=== PATIENT | male | born 1945 | race American Indian/Alaskan Native ===

== ENCOUNTER 2017-08-25 13:15 | Inpatient (IN) | payer MEDICARE, MEDICAID ==
[2017-08-25] MEDS ORDERED: Dextrose 50% SYRINGE Inj (50 ml) ONE (13:21)
[2017-08-25 13:32] VITALS: BMI 24.4
[2017-08-25] MEDS ORDERED: Dextrose 50% SYRINGE Inj (50 ml) IVP STA ×2 (13:38→13:41)
--- NOTE | 2017-08-25 14:05 | CT ---
PROCEDURE: CT HEAD WITHOUT CONTRAST. HISTORY: code stroke COMPARISON: None available. TECHNIQUE: Axial computed tomography images were obtained through the head/brain without intravenous contrast. Radiation dose: Total exam DLP = 860.73 mGy-cm. This CT exam was performed using one or more of the following dose reduction techniques: Automated exposure control, adjustment of the mA and/or kV according to patient size, and/or use of iterative reconstruction technique. FINDINGS: HEMORRHAGE: No intracranial hemorrhage. BRAIN: There is asymmetric low attenuation in the right insular cortex and basal ganglia with dense right MCA. There are old infarctions in the right thalamus bilateral basal ganglia, left ben kaycee and right frontal operculum. There are mild chronic microangiopathic changes. There is no mass, mass effect or abnormal extra-axial fluid collection. There are coarse atherosclerotic calcifications in the cavernous carotid arteries. VENTRICLES: There is moderate age-related global parenchymal volume loss and proportionate enlargement of the ventricles and cortical sulci. CALVARIUM: The skull base and calvarium are normal. PARANASAL SINUSES: There is a small retention cyst/ polyp in the left maxillary sinus. The remaining included paranasal sinuses are predominantly clear. MASTOID AIR CELLS: The mastoid air cells are clear. OTHER FINDINGS: None. IMPRESSION: 1. Findings are concerning for right MCA territory infarction involving the right insula and basal ganglia with concern of thrombus in the right middle cerebral artery. Please note an MRI of the brain without intravenous contrast would be a more sensitive modality for evaluation of hyperacute/acute ischemic infarction. 2. Old lacunar infarctions in bilateral basal ganglia and right thalamus. 3. Mild chronic microangiopathic changes and moderate age-related global parenchymal volume loss. Important findings were discussed with Dr. Dave Jimenez on 08/25/2017 at 1:50 p.m.
[2017-08-25 14:11] LABS: BASO # 0.1 K/uL (0.0-0.2); BASO % 0.6 % (0.0-2.0); EOS % 0.5 % (0.0-4.0); HEMOGLOBIN 12.9 g/dL (12.0-18.0); LYMPH # 1.3 K/uL (1.0-4.3); LYMPH % 14.8 % (20.0-40.0); MEAN CELL VOLUME 75.8 fl (80.0-94.0); MEAN CORPUSCULAR HEMOGLOBIN 24.7 pg (27.0-31.0); MEAN CORPUSCULAR HGB CONC 32.6 g/dL (33.0-37.0); MEAN PLATELET VOLUME 8.6 fl (7.2-11.7); MONO # 0.7 K/uL (0.0-0.8); MONO % 7.8 % (0.0-10.0); NEUT # 6.8 K/uL (1.8-7.0); NEUT % 76.3 % (50.0-75.0); NRBC % 0.1 % (0.0-0.0); RBC 5.22 Mil/uL (4.40-5.90); RED CELL DISTRIBUTION WIDTH 14.6 % (11.5-14.5); WHITE BLOOD COUNT 8.9 K/uL (4.8-10.8)
--- NOTE | 2017-08-25 14:39 | RAD ---
PROCEDURE: CHEST RADIOGRAPH, 1 VIEW HISTORY: code stroke COMPARISON: None available. FINDINGS: A tracheostomy tube remains in place. LUNGS: The lungs are clear. PLEURA: No pneumothorax or pleural fluid seen. CARDIOVASCULAR: Normal. OSSEOUS STRUCTURES: No significant abnormalities. VISUALIZED UPPER ABDOMEN: Normal. OTHER FINDINGS: None. IMPRESSION: No active pulmonary disease.
--- NOTE | 2017-08-25 14:42 | CP.PCM.CON ---
History of Present Illness - History of Present Illness History of Present Illness: Mr. Howard is a 71-year-old man with a past medical history of HTN, DM, CAD, digital amputations, history of laryngeal cancer (s/p trach), who was apparently at his baseline when he developed the sudden onset of right facial droop, right arm and leg weakness (at slightly after 11:30 AM). He was brought in to the ED about two hours after symptom onset and a STAT CT scan of the head did not show any hemorrhage, but there were previous lacunar infarcts and a possible right MCA hyperdensity. According to EMS, his initial serum glucose was normal; however, when he arrived to the ED, it was 20. He was given D50 and it was elevated to 60. Another dose of D50, brought it to 200. He was still within the 3 hour time window of IV tPA and at this point had no absolute contraindications. When I examined him, the patient followed simple commands, but had some difficulty with comprehension. His speech was difficult to assess due to the tracheostomy, but he did exhibit some deficits in comprehension. His NIHSS was a 7. Review of Systems - Review of Systems All systems: reviewed and no additional remarkable complaints except Past Patient History - Past Medical History & Family History Past Medical History?: Yes - Past Social History Smoking Status: Former Smoker - CARDIAC Hx Hypertension: Yes Hx Peripheral Edema: Yes - PULMONARY Hx Respiratory Disorders: Yes Hx Chronic Obstructive Pulmonary Disease (COPD): Yes Other/Comment: tracheostomy - HEENT Hx HEENT Problems: Yes Hx Cataracts: Yes - ENDOCRINE/METABOLIC Hx Endocrine Disorders: Yes Hx Diabetes Mellitus Type 2: Yes - HEMATOLOGICAL/ONCOLOGICAL Hx Blood Disorders: Yes Hx Cancer: Yes (larynx) - GENITOURINARY/GYNECOLOGICAL Hx Genitourinary Disorders: Yes Hx Prostate Problems: Yes - PSYCHIATRIC Hx Psychophysiologic Disorder: Yes Hx Depression: Yes Hx Schizophrenia: Yes - SURGICAL HISTORY Hx Surgeries: Yes Hx Amputation: Yes (FINGER) Other/Comment: TRACHEOSTOMY 1963 - ANESTHESIA Hx Anesthesia: Yes Meds Allergies/Adverse Reactions: Allergies Allergy/AdvReac Type Severity Reaction Status Date / Time No Known Allergies Allergy Verified 11/03/16 10:43 Physical Exam - Neck Exam Additional comments: Tracheostomy - Respiratory Exam Respiratory Exam: Clear to Auscultation Bilateral, NORMAL BREATHING PATTERN - Cardiovascular Exam Cardiovascular Exam: REGULAR RHYTHM, +S1, +S2 - Neurological Exam Neurological exam: Altered, CN II-XII Intact Additional comments: Right facial droop. Right arm and leg sensation is decreased as compared with the left. Right arm strength is 3/5, RLE is antigravity, but falls before 5 seconds, left arm remains elevated for full 10 seconds, left leg remains elevated for 5 seconds. Plantar responses are mute. Speech could not be assessed, but he had difficulty in following some commands. NIHSS = 7 Results - Vital Signs Recent Vital Signs: Last Vital Signs Temp Pulse 90 08/25/17 13:26 Resp 16 08/25/17 13:26 BP Pulse Ox 97 08/25/17 13:26 - Labs Labs: Laboratory Results - last 24 hr 08/25/17 08/25/17 13:40 14:07 POC Glucose (mg/dL) 62 L 207 H Assessment & Plan (1) Acute ischemic stroke Assessment and Plan: Based on the exam findings, the infarct is likely lacunar left basal ganglia, but the CT head is more consistent with right MCA occlusion. The CT may be prone to artifact and clinically, the patient has right side deficits with an NIHSS of 7. He is within the 3 hour time window for IV tPA, his glucose was within normal range when IV tPA was recommended. He is not on any anticoagulation. Other labs may be bypassed at this time and tPA should be given without delay. Furthermore, I recommend the followin. STAT CTA of the head/neck to evaluate for large vessel occlusion. MRI of the brain without contrast. 2. ICU admission for 24 hour observation if no LVO 3. Maintain BP per post-tPA protocol 4. Avoid anticoagulants or antiplatelet agents for at least 24 hours or until further notice 5. Fluids with NS at 100 mL/hr 6. Statin to maintain LDL< 70 7. Maintain normal glucose levels 8. Avoid hyperthermia 9. Keep HOB at 30 degrees 10. SCD for DVT Px 11. Case management consult Thank you. Status: Acute Priority: High
[2017-08-25 14:45] LABS: INR 1.3 (0.9-1.2); PARTIAL THROMBOPLASTIN TIME 24.1 Seconds (25.6-37.1); PROTHROMBIN TIME 14.6 Seconds (9.8-13.1)
[2017-08-25 14:46] LABS: ALB/GLOB RATIO 0.7 (1.0-2.1); ALBUMIN 3.5 g/dL (3.5-5.0); ALT/SGPT 41 U/L (21-72); AST/SGOT 61 U/L (17-59); BLOOD UREA NITROGEN 69 mg/dl (9-20); GFR AFRICAN-AMERICAN 40; GFR NON-AFRICAN AMERICAN 33; LIPASE 242 U/L (23-300)
[2017-08-25] MEDS ORDERED: Iodixanol 320 MG/ML 100 ML BOTTLE IV ONE (15:10)
[2017-08-25] MEDS ORDERED: Sodium Chloride 0.9% 50 ML IV ONE (15:10)
--- NOTE | 2017-08-25 15:14 | ED PDOC ---
HPI:STROKE - Time Time: 03:11 - Historian Historian: Patient, intermediate, EMS - Chief Complaint Chief Complaint: Weakness (r arm), Facial droop (r face) - Onset Onset: Hours (2) - Timing Timing: Currently Symptomatic - Severity of pain Maximum severity:: Moderate - TPA Positive for Contraindication: No - Notes: Notes:: pt sent in by ems per [employer] pt last seen nml approx 1130 am, now right sided weakness and facial droop. pt is non verbal due to laryngectromy for larynx ca. per ems nml blood sugar. NIHSS Stroke Scale - Date/Time Evaluation Performed Date Performed: 08/25/17 Time Performed: 12:00 When Was NIHSS Performed: Baseline - How Severe is the Stroke Level of Consciousness: 1=Drowsy LOC to Questions: 2=Neither correct LOC to commands: 2=Neither correct Best Gaze: 1=Partial gaze palsy Visual: 0=No visual loss Facial: 2=Partial (lower face paralysis) Motor Arm - Left: 0=No drift Motor Arm - Right: 2=Falls before 10 sec Motor Leg - Left: 0=No drift Motor Leg - Right: 0=No drift Limb Ataxia: 0=Absent Sensory: 1=Mild to moderate loss Best Language: 3=Mute Dysarthia: 2=Severe, near unintelligible or worse Extinction & Inattention (Neglect): 0=Normal, no object Score: 16 Severity Of Stroke: 16-20 = Moderate/Severe Stroke rTPA Inclusion/Exclusion - Refusal of Treatment Patient Refused Treatment: No - Inclusion Criteria for Altepase Patient is 18 years or Older: Yes The Clinical Diagnosis of Ischemic Stroke That is Causing a Potentially Disabling Neurological Deficit: Yes Time of Onset is Well Established to be Less Than 270 Minute Before Treatment Would Begin: Yes Risk/Benefit Discussed With Patient/Family Member Present: Yes - Exclusion Criteria for Altepase Uncontrolled Hypertension at Time of Treatment (Systolic BP above 185 or Diastolic BP above 110 mmHg): No Active Internal Bleeding: No Known Bleeding Diathesis Including but Not Limited to: Platelets Below 100,000/ mm,PTT Above 40 sec After Heparin Use, Current Use of Oral Anitcoagulant With INR Greater Than 1.7 or PT Greater Than 15 secs: No Evidence of an Intracranial Hemorrhage: No Evidence of Major Acute Infarct With Signs Greater Than 1/3 MCA Territory: No Suspicion of Subarachnoid Hemorrhage on Pretreatment Evaluation Even if CT Head Negative For Hemorrhage: No - Warning to TPA With Conditions Following Conditions Weighed Against Anticipated Benefit: No Past Medical History Reviewed: Historical Data, Nursing Documentation, Vital Signs Vital Signs: Last Vital Signs Temp 97.6 F 08/25/17 15:05 Pulse 88 08/25/17 15:05 Resp 14 08/25/17 15:05 BP 157/98 H 08/25/17 15:05 Pulse Ox 100 08/25/17 15:05 - Medical History PMH: COPD, Depression, HTN, Peripheral Edema, Schizophrenia - Family History Family History: States: Unknown Family Hx - Living Arrangements Living Arrangements: With Family - Social History Current smoker - smoking cessation education provided: No - Home Medications Home Medications: Ambulatory Orders Medication Instructions Recorded Albuterol 0.083% [Albuterol 0.083% 3 ml IH Q8H PRN 11/03/16 Inhal Dana (2.5 mg/3 ml) UD] Ipratropium 0.02% [Atrovent] 2.5 ml IH Q8H PRN 11/03/16 Mirtazapine [Remeron] 7.5 mg PO HS 11/03/16 Multivitamin [Multivitamins] 1 cap PO DAILY 11/03/16 Tamsulosin [Flomax] 0.4 mg PO DAILY 11/03/16 Acetaminophen [Tylenol 325mg tab] 650 mg PO Q4 PRN 08/25/17 Acetaminophen [Tylenol 325mg tab] 650 mg PO Q4H PRN 08/25/17 Budesonide [Pulmicort Respules] 2 ml IH Q12H 08/25/17 Aspirin [Aspirin Chewable] 81 mg PO DAILY chew 08/31/17 - Allergies Allergies/Adverse Reactions: Allergies Allergy/AdvReac Type Severity Reaction Status Date / Time No Known Allergies Allergy Verified 11/03/16 10:43 Review of Systems Review Of Systems: ROS cannot be obtained secondary to pt's inabilty to answer questions. Neurological: Positive for: Weakness, Numbness Physical Exam - Reviewed Nursing Documentation Reviewed: Yes Vital Signs Reviewed: Yes - Physical Exam Appears: Positive for: In Acute Distress (mild) Head Exam: Positive for: ATRAUMATIC, NORMAL INSPECTION, NORMOCEPHALIC Skin: Positive for: Normal Color, Warm, Dry Eye Exam: Positive for: Normal appearance, PERRL, Other (mild right gave deviating to the left) Neck: Positive for: Normal, Painless ROM, Supple, Trachea Midline (s/p trach) Cardiovascular/Chest: Positive for: Regular Rate, Rhythm, Chest Non Tender. Negative for: Edema, Gallop Respiratory: Positive for: Normal Breath Sounds. Negative for: Decreased Breath Sounds, Accessory Muscle Use, Crackles, Rales, Rhonchi, Stridor, Wheezing Gastrointestinal/Abdominal: Positive for: Normal Exam, Bowel Sounds, Soft. Negative for: Tenderness Back: Positive for: Normal Inspection. Negative for: L CVA Tenderness Extremity: Positive for: Normal ROM. Negative for: Tenderness, Pedal Edema Neurologic/Psych: Positive for: Motor/Sensory Deficits (3/5 strength in rue), Mood/Affect (anxious), Cerebellar Tests (ftn intact), Aphasia, Facial Droop ( mod on left). Negative for: Alert (lethargic), Oriented - Laboratory Results Result Diagrams: 08/29/17 04:50 08/29/17 04:50 - ECG ECG: Positive for: Interpreted By Me ECG Rhythm: Positive for: Normal QRS, Normal ST Segment, Sinus Rhythm, ST/T Changes (twi in v5, v6 no st changes) O2 Sat by Pulse Oximetry: 100 Pulse Ox Interpretation: Normal - Radiology X-Ray: Interpreted by Me X-Ray Interpretation: No Acute Disease - Progress ED Course And Treament: seen and eval by Dr sin, pt a candidate for tpa. tpa delayed due to low bs on arrival requiring two doses of d50 with no change in sx. given in the ed, cta pending. pt tolerate well 3pm cta neg pt given tpa will admit to icu, pt sx are improving Re-evaluation Time: 15:22 Condition: Improved - Critical Care Total Time (In Min): 30 Documented Critical Care: Time excludes all time spent performint seperately billable procedures Disposition - Clinical Impression Clinical Impression: Acute ischemic stroke, CVA (cerebral vascular accident) - Patient ED Disposition Is Patient to be Admitted: Yes Counseled Patient/Family Regarding: Studies Performed, Diagnosis, Need For Followup - Disposition Disposition Time: 16:00 Condition: FAIR - Pt Status Changed To: Hospital Disposition Of: Inpatient - Admit Certification Admit to Inpatient:: After my assessment, the patient will require hospitalization for at least two midnights. This is because of the severity of symptoms shown, intensity of services needed, and/or the medical risk in this patient being treated as an outpatient. - POA Present On Arrival: None
[2017-08-25] MEDS ORDERED: Sodium Chloride 0.9% 1,000 ML IV ONE (15:41)
--- NOTE | 2017-08-25 16:17 | CT ---
PROCEDURE: CTA HEAD AND NECK WITH CONTRAST HISTORY: Right sided weakness COMPARISON: None available. TECHNIQUE: Initial noncontrast head CT was performed. Subsequently, CT angiogram of the head and neck were performed after the intravenous administration of 80 mL of Omnipaque 350. Contiguous 1.5mm thick images were obtained in the axial plane of the neck. 2-D coronal and sagittal MPR images were obtained. Imaging postprocessing was performed with 3-D images also obtained. A delayed contrast head CT was also obtained. This CT exam was performed using one or more of the following dose reduction techniques: Automated exposure control, adjustment of the mA and/or kV according to patient size, and/or use of iterative reconstruction technique. Contrast dose: 80 mL Visipaque 320 Radiation dose: Total exam DLP = 573.34 mGy-cm. FINDINGS: HEAD: Right: The intracranial internal carotid artery, and anterior and middle cerebral arteries are widely patent. Left: The intracranial internal carotid artery, and anterior and middle cerebral arteries are widely patent. The A1 segment is hypoplastic, an anatomic variant. Posterior circulation: The visualized intracranial vertebral arteries, basilar artery and posterior cerebral arteries are widely patent. The left vertebral artery is hypoplastic. Ther is no endoluminal filling defect to suggest thrombus. There is no intracranial saccular aneurysm. There is no abnormal enhancement on the postcontrast CT. NECK: There is a three vessel aortic arch. There is an intraluminal thrombus in the left proximal subclavian artery at its origin extending distal to the origin of the left vertebral artery. There is no stenosis at the origins of the innominate and left common carotid arteries at the level of the aortic arch. Right Carotid: There is aneurysmal dilatation of the internal carotid artery at its origin. Approximately 1.3 cm distal to the origin, there is a 7 mm short segment narrowing in the internal carotid artery with resultant approximately 60% stenosis. There is retropharyngeal course of the right internal carotid artery. The common carotid and external carotid arteries are widely patent. There is no hemodynamically significant stenosis in the internal carotid artery by NASCET criteria. Left Carotid: On the left, the common carotid and external carotid arteries are widely patent. There are advanced atherosclerotic calcifications and soft plaques in the proximal internal carotid artery with a 5 mm segment of critical narrowing resulting in greater than 80% stenosis. The right vertebral artery is widely patent. There is complete occlusion of the cervical segment of the left vertebral artery. There is flow in the intracranial left carotid artery likely from collateral circulation The visualized soft tissues of the neck are normal. The lung apices are clear. IMPRESSION: 1. Intraluminal thrombus in the left subclavian artery at its origin extending into the proximal subclavian artery distal to the origin of the left vertebral artery with complete occlusion of the cervical segment of the left vertebral artery. 2. Advanced calcified and noncalcified atherosclerotic plaques in the left proximal internal carotid artery with a short segment (5 mm) of severe narrowing resulting in greater than 80% stenosis. 3. 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 3. Patent and dominant right vertebral artery. 4. No evidence of occlusion, definite significant stenosis or narrowing in the intracranial circulation. The left intracranial vertebral artery is hypoplastic and likely filled by proved lateral circulation.
[2017-08-25] MEDS ORDERED: Albuterol-Ipratrop 3 mg / 0.5 (3 ml) UD INH PRN (18:15)
[2017-08-25 23:22] LABS: SQUAMOUS EPITHIAL < 1 /hpf (0-5); URINE BILIRUBIN NEGATIVE (NEGATIVE); URINE BLOOD MODERATE (NEGATIVE); URINE CLARITY SLIGHTY-CLOUDY (Clear); URINE COLOR AMBER (YELLOW); URINE GLUCOSE (UA) 150 mg/dL (Normal); URINE LEUKOCYTE ESTERASE NEG Leu/uL (Negative); URINE NITRATE NEGATIVE (NEGATIVE); URINE PROTEIN 30 mg/dL (NEGATIVE)
[2017-08-26] MEDS ORDERED: Sodium Chloride 0.9% 1,000 ML IV SCH ×2 (00:45→09:00)
[2017-08-26 01:33] LABS: BARBITURATES, UR NEGATIVE (NEGATIVE); BENZODIAZEPINES, UR NEGATIVE (NEGATIVE); OPIATES, UR NEGATIVE (NEGATIVE); PHENCYCLIDINE, UR NEGATIVE (NEGATIVE)
--- NOTE | 2017-08-26 04:48 | PN ---
DATE: 08/25/2017 SUBJECTIVE: Patient in ER, being admitted to ICU, Time spent 40 minutes. Mr. Howard is a 71-year-old male with history significant for diabetes mellitus type 2, hypertension, coronary artery disease status post digital amputation left arm, status post tracheostomy for laryngectomy secondary to laryngeal cancer. The patient was apparently at his baseline when he developed sudden onset of right facial droop and right leg weakness. The patient was brought to emergency room. A CT scan showed possible right MCA hyperdensity. Patient was seen by Neurology consult, recommended by IV TPA. TPA was completed, uneventful, admitted to ICU. REVIEW OF SYSTEMS: No fever, chills, cough, shortness of breath. No chest pain, palpitation. No abdominal pain. Right facial droop, weakness of the right arm and right leg. PAST MEDICAL HISTORY: As noted. PAST SURGICAL HISTORY: Laryngectomy. MEDICATIONS: At home, include Tylenol 650 q. 4 hours p.r.n., albuterol 2.5 mg 3 mL via nebulizer q. 8 hours, Pulmicort 0.5 mg q. 12 hours, Catapres 0.1 mg daily, Atrovent 0.5 mg q. 8 hours, lisinopril mg p.o. daily, magnesium hydroxide 30 mL daily, Remeron 7.5 mg p.o. at bedtime, multivitamin daily, Flomax 0.4 mg daily. ALLERGY: NONE DOCUMENTED. PHYSICAL EXAMINATION: GENERAL: An elderly male, alert, awake, but non-fluent of speech secondary to laryngectomy and tracheostomy. VITAL SIGNS: Temperature 97.6, heart rate 101, blood pressure 131/78, mean arterial pressure 95, respiratory rate 16, oxygen saturation 100%. HEAD, EYES, EARS, NOSE AND THROAT: Atraumatic and normocephalic. Pupils equal, round and reactive to light accommodation. Extraocular muscles intact. Conjunctivae pink. Sclerae white. NECK: Supple. Tracheostomy site clean, with no secretions. CHEST: Bilateral breath sounds. Expiration prolonged. HEART: Rhythm regular. S1 and S2 normal. ABDOMEN: Bowel sounds present. Soft. Liver and spleen not palpable. Bladder not distended. EXTREMITIES: Digital amputation left hand. NEUROLOGIC: Weakness of the right arm, right leg, right . LABORATORY DATA: Examination of head and neck CT angiogram, no evidence of occlusion, definite significant stenosis or narrowing in the intracranial circulation, the left intracranial vertebral artery is hypoplastic and likely filled by lateral circulation, patent and dominant right vertebral artery, aneurysmal dilatation of the right internal carotid artery at its mid origin, advanced calcified and noncalcified sclerotic plaques in the left proximal internal carotid artery, intraluminal thrombosis in the left subclavian artery at its origin extending into the proximal subclavian artery distal to the origin of the left vertebral artery with complete occlusion of the cervical segment of the left vertebral artery. CT head, right MCA territory infarction involving the right insula and basal ganglia with concern of thrombus in the right middle cerebral artery, old lacunar infarct in bilateral basilar ganglia and right thalamus, mild chronic microangiopathic changes and moderate age-related global parenchymal volume loss. WBC 8.9, hemoglobin 12.9, hematocrit 39.6, platelet count of 248. PT 14.6, INR 1.3, PTT 24.1. SMA-7, sodium 145, potassium 4, chloride 111, CO2 of 20, blood urea nitrogen 69, creatinine 2, random glucose 478, calcium 9, total bilirubin 0.8, AST 61, ALT 41, alkaline phosphatase 70, total protein 8.1, albumin 3.5, lipase 242. IMPRESSION: 1. Acute cerebrovascular accident, involving right middle cerebral artery hyperdensity. Patient presents with right facial droop and right hemiparesis. Appreciated Neurology evaluation, status post TPA, tolerated well. History of previous lacunar infarct. 2. Pulmonary: Status post of tracheostomy and laryngectomy for laryngeal cancer, chronic obstructive pulmonary disease, on bronchodilator at home. 3. Cardiac: Hypertension with hypertensive cardiovascular disease. 4. Endocrine: Diabetes mellitus type 2. Maintain blood sugar less than 180. 5. Infection: No acute issues noted. 6. Renal: Acute on chronic renal insufficiency. 7. GI: Keep n.p.o., continue swallow evaluation in the morning, Accu-Chek with regular insulin coverage. Will obtain OT/PT evaluation in the morning. Justin Palacios MD
[2017-08-26 06:20] LABS: LDL CHOLESTEROL 52 mg/dL (0-129)
[2017-08-26 06:21] LABS: BLOOD UREA NITROGEN 50 mg/dl (9-20); CALCIUM 9.2 mg/dL (8.4-10.2); GFR AFRICAN-AMERICAN > 60; GFR NON-AFRICAN AMERICAN 54; HDL CHOLESTEROL 28 MG/DL (30-70); MAGNESIUM 2.4 MG/DL (1.6-2.3)
[2017-08-26] MEDS: Insulin Regular 100 units/ml SC SCH ×5 (06:31→22:56)
[2017-08-26] MEDS ORDERED: Sodium Chloride 0.9% 500 ML IV ONE ×2 (08:41→12:35)
[2017-08-26] MEDS: Sodium Chloride 0.9% 1,000 ML IV SCH ×3 (11:00→22:56)
--- NOTE | 2017-08-26 11:42 | CP.CCUPN ---
CCU Subjective - Physician Review Subjective (Free Text): 08/26/17 11:35 Patient seen and examined with family preservation officer. Lying in bed, no apparent distress. Breathing comfortably. BP 80s systolic, HR 40s. When asked about dizziness the patient shook his head no to dizziness, chest pain, abdominal pain, nausea, or vomiting. Following commands this morning. Able to raise lower extremities against gravity , left upper extremity weakness, right upper extremity-unable to move. Patient is not speaking. Still has facial droop. No appetite, no thirst. Vital signs as per EMR: T98, HR 101, BP: 11/51, RR 17, trach collar-Fio2 50% O2 sat 96%. I/Os reviewed. Labs remarkable for Hypernatremia, Hyperchloremia, High BUN of 50, Low CO2 19 Imaging reviewed: CT head/ CTA, CXR, ECG. He is to have repeat CT of Head this afternoon as per code stroke protocol CCU Objective - Vital Signs / Intake & Output Intake and Output (Last 8hrs): Intake & Output 08/25/17 08/26/17 08/26/17 22:59 06:59 14:59 Intake Total 1450 Output Total 100 Balance 1350 Intake: IV 450 Intake, Piggyback 1000 Output: Urine 100 Urine, Voided 100 Other: # Voids Urine, Voided 1 - Physical Exam Head: Positive for: Atraumatic, Normocephalic Pupils: Positive for: PERRL Conjunctiva: Positive for: Normal Mouth: Positive for: Dry Neck: Positive for: Other (trach collar) Respiratory/Chest: Positive for: Good Air Exchange. Negative for: Respiratory Distress, Accessory Muscle Use, Wheezes, Rales, Tachypneic Cardiovascular: Positive for: Bradycardic, Other (left radial barely palpable, right radial palpable, bilateral dp/pt palable, femoral pulses strong.) Abdomen: Negative for: Tenderness, Distention Upper Extremity: Positive for: Normal Inspection, Other (unable to move right upper extremity, left upper extremity 2/5). Negative for: Edema, Normal ROM, Swelling, Erythema Lower Extremity: Positive for: Normal Inspection, Other (able to lift bilateral LE against gravity, strength 3/5). Negative for: Edema, Normal ROM, Swelling Neurological: Positive for: Other (gait deferred) Skin: Positive for: Warm, Dry Psychiatric: Positive for: Other (awake) - Medications Active Medications: Active Medications Generic Name Dose Route Start Last Admin Trade Name Freq PRN Reason Stop Dose Admin Albuterol/Ipratropium 3 ml 08/25/17 18:15 Duoneb 3 Mg/0.5 Mg (3 Ml) Ud INH RQ6 PRN Shortness of Breath Sodium Chloride 1,000 mls @ 100 mls/hr 08/26/17 00:00 08/26/17 00:00 Sodium Chloride 0.9% IV 08/29/17 23:59 100 mls/hr .Q10H SHANAE Administration Sodium Chloride 1,000 mls @ 999 mls/hr 08/26/17 09:00 Sodium Chloride 0.9% IV 08/27/17 08:53 .Q1H1M SHANAE Insulin Human Regular 1 units 08/25/17 22:00 08/26/17 06:31 Humulin R SC Not Given ACHS [facility] Protocol - Patient Studies Lab Studies: Lab Studies 08/26/17 08/26/17 08/26/17 Range/Units 11:30 08:54 06:09 WBC (4.8-10.8) K/uL RBC (4.40-5.90) Mil/uL Hgb (12.0-18.0) g/dL Hct (35.0-51.0) % MCV (80.0-94.0) fl MCH (27.0-31.0) pg MCHC (33.0-37.0) g/dL RDW (11.5-14.5) % Plt Count (130-400) K/uL MPV (7.2-11.7) fl Neut % (Auto) (50.0-75.0) % Lymph % (Auto) (20.0-40.0) % Glenn % (Auto) (0.0-10.0) % Eos % (Auto) (0.0-4.0) % Baso % (Auto) (0.0-2.0) % Neut # (1.8-7.0) K/uL Lymph # (1.0-4.3) K/uL Glenn # (0.0-0.8) K/uL Eos # (0.0-0.7) K/uL Baso # (0.0-0.2) K/uL PT (9.8-13.1) Seconds INR (0.9-1.2) APTT (25.6-37.1) Seconds Sodium (132-148) mmol/l Potassium (3.6-5.0) MMOL/L Chloride (98-107) mmol/L Carbon Dioxide (22-30) mmol/L Anion Gap (10-20) BUN (9-20) mg/dl Creatinine (0.8-1.5) mg/dl Est GFR ( Amer) Est GFR (Non-Af Amer) POC Glucose (mg/dL) 92 95 121 H (65-110) mg/dL Random Glucose (75-110) mg/dL Calcium (8.4-10.2) mg/dL Phosphorus (2.5-4.5) mg/dl Magnesium (1.6-2.3) MG/DL Total Bilirubin (0.2-1.3) mg/dl AST (17-59) U/L ALT (21-72) U/L Alkaline Phosphatase (38-126) U/L Troponin I (0.00-0.120) ng/mL Total Protein (6.3-8.2) G/DL Albumin (3.5-5.0) g/dL Globulin (2.2-3.9) gm/dL Albumin/Globulin Ratio (1.0-2.1) Triglycerides (0-149) mg/DL Cholesterol (0-199) mg/dL LDL Cholesterol Direct (0-129) mg/dL HDL Cholesterol (30-70) MG/DL Lipase (23-300) U/L TSH 3rd Generation (0.46-4.68) mIU/ML Urine Color (YELLOW) Urine Clarity (Clear) Urine pH (5.0-8.0) Ur Specific [place] (1.003-1.030) Urine Protein (NEGATIVE) mg/dL Urine Glucose (UA) (Normal) mg/dL Urine Ketones (NEGATIVE) mg/dL Urine Blood (NEGATIVE) Urine Nitrate (NEGATIVE) Urine Bilirubin (NEGATIVE) Urine Urobilinogen (0.2-1.0) mg/dL Ur Leukocyte Esterase (Negative) Jayant/uL Urine RBC (Auto) (0-3) /hpf Urine Microscopic WBC (0-5) /hpf Ur Squamous Epith Cells (0-5) /hpf Hyaline Casts (0-2) /hpf Urine Yeast (Budding) (NEGATIVE) /hpf Urine Opiates Screen (NEGATIVE) Urine Methadone Screen (NEGATIVE) Ur Barbiturates Screen (NEGATIVE) Ur Phencyclidine Scrn (NEGATIVE) Ur Amphetamines Screen (NEGATIVE) U Benzodiazepines Scrn (NEGATIVE) U Oth Cocaine Metabols (NEGATIVE) U Cannabinoids Screen (NEGATIVE) 08/26/17 08/26/17 08/25/17 Range/Units 05:10 01:14 23:55 WBC (4.8-10.8) K/uL RBC (4.40-5.90) Mil/uL Hgb (12.0-18.0) g/dL Hct (35.0-51.0) % MCV (80.0-94.0) fl MCH (27.0-31.0) pg MCHC (33.0-37.0) g/dL RDW (11.5-14.5) % Plt Count (130-400) K/uL MPV (7.2-11.7) fl Neut % (Auto) (50.0-75.0) % Lymph % (Auto) (20.0-40.0) % Glenn % (Auto) (0.0-10.0) % Eos % (Auto) (0.0-4.0) % Baso % (Auto) (0.0-2.0) % Neut # (1.8-7.0) K/uL Lymph # (1.0-4.3) K/uL Glenn # (0.0-0.8) K/uL Eos # (0.0-0.7) K/uL Baso # (0.0-0.2) K/uL PT (9.8-13.1) Seconds INR (0.9-1.2) APTT (25.6-37.1) Seconds Sodium 150 H (132-148) mmol/l Potassium 4.7 (3.6-5.0) MMOL/L Chloride 116 H (98-107) mmol/L Carbon Dioxide 19 L (22-30) mmol/L Anion Gap 20 (10-20) BUN 50 H (9-20) mg/dl Creatinine 1.3 (0.8-1.5) mg/dl Est GFR ( Amer) > 60 Est GFR (Non-Af Amer) 54 POC Glucose (mg/dL) 86 (65-110) mg/dL Random Glucose 118 H (75-110) mg/dL Calcium 9.2 (8.4-10.2) mg/dL Phosphorus 3.5 (2.5-4.5) mg/dl Magnesium 2.4 H (1.6-2.3) MG/DL Total Bilirubin (0.2-1.3) mg/dl AST (17-59) U/L ALT (21-72) U/L Alkaline Phosphatase (38-126) U/L Troponin I (0.00-0.120) ng/mL Total Protein (6.3-8.2) G/DL Albumin (3.5-5.0) g/dL Globulin (2.2-3.9) gm/dL Albumin/Globulin Ratio (1.0-2.1) Triglycerides 108 (0-149) mg/DL Cholesterol 136 (0-199) mg/dL LDL Cholesterol Direct 52 (0-129) mg/dL HDL Cholesterol 28 L (30-70) MG/DL Lipase (23-300) U/L TSH 3rd Generation 0.55 (0.46-4.68) mIU/ML Urine Color (YELLOW) Urine Clarity (Clear) Urine pH (5.0-8.0) Ur Specific [place] (1.003-1.030) Urine Protein (NEGATIVE) mg/dL Urine Glucose (UA) (Normal) mg/dL Urine Ketones (NEGATIVE) mg/dL Urine Blood (NEGATIVE) Urine Nitrate (NEGATIVE) Urine Bilirubin (NEGATIVE) Urine Urobilinogen (0.2-1.0) mg/dL Ur Leukocyte Esterase (Negative) Jayant/uL Urine RBC (Auto) (0-3) /hpf Urine Microscopic WBC (0-5) /hpf Ur Squamous Epith Cells (0-5) /hpf Hyaline Casts (0-2) /hpf Urine Yeast (Budding) (NEGATIVE) /hpf Urine Opiates Screen Negative (NEGATIVE) Urine Methadone Screen Negative (NEGATIVE) Ur Barbiturates Screen Negative (NEGATIVE) Ur Phencyclidine Scrn Negative (NEGATIVE) Ur Amphetamines Screen Negative (NEGATIVE) U Benzodiazepines Scrn Negative (NEGATIVE) U Oth Cocaine Metabols Negative (NEGATIVE) U Cannabinoids Screen Negative (NEGATIVE) 08/25/17 08/25/17 08/25/17 Range/Units 23:02 16:58 14:07 WBC (4.8-10.8) K/uL RBC (4.40-5.90) Mil/uL Hgb (12.0-18.0) g/dL Hct (35.0-51.0) % MCV (80.0-94.0) fl MCH (27.0-31.0) pg MCHC (33.0-37.0) g/dL RDW (11.5-14.5) % Plt Count (130-400) K/uL MPV (7.2-11.7) fl Neut % (Auto) (50.0-75.0) % Lymph % (Auto) (20.0-40.0) % Glenn % (Auto) (0.0-10.0) % Eos % (Auto) (0.0-4.0) % Baso % (Auto) (0.0-2.0) % Neut # (1.8-7.0) K/uL Lymph # (1.0-4.3) K/uL Glenn # (0.0-0.8) K/uL Eos # (0.0-0.7) K/uL Baso # (0.0-0.2) K/uL PT (9.8-13.1) Seconds INR (0.9-1.2) APTT (25.6-37.1) Seconds Sodium (132-148) mmol/l Potassium (3.6-5.0) MMOL/L Chloride (98-107) mmol/L Carbon Dioxide (22-30) mmol/L Anion Gap (10-20) BUN (9-20) mg/dl Creatinine (0.8-1.5) mg/dl Est GFR ( Amer) Est GFR (Non-Af Amer) POC Glucose (mg/dL) 88 207 H (65-110) mg/dL Random Glucose (75-110) mg/dL Calcium (8.4-10.2) mg/dL Phosphorus (2.5-4.5) mg/dl Magnesium (1.6-2.3) MG/DL Total Bilirubin (0.2-1.3) mg/dl AST (17-59) U/L ALT (21-72) U/L Alkaline Phosphatase (38-126) U/L Troponin I (0.00-0.120) ng/mL Total Protein (6.3-8.2) G/DL Albumin (3.5-5.0) g/dL Globulin (2.2-3.9) gm/dL Albumin/Globulin Ratio (1.0-2.1) Triglycerides (0-149) mg/DL Cholesterol (0-199) mg/dL LDL Cholesterol Direct (0-129) mg/dL HDL Cholesterol (30-70) MG/DL Lipase (23-300) U/L TSH 3rd Generation (0.46-4.68) mIU/ML Urine Color Magalys (YELLOW) Urine Clarity Slighty-cloudy (Clear) Urine pH 5.0 (5.0-8.0) Ur Specific [place] 1.039 H (1.003-1.030) Urine Protein 30 (NEGATIVE) mg/dL Urine Glucose (UA) 150 (Normal) mg/dL Urine Ketones Negative (NEGATIVE) mg/dL Urine Blood Moderate (NEGATIVE) Urine Nitrate Negative (NEGATIVE) Urine Bilirubin Negative (NEGATIVE) Urine Urobilinogen 2.0 (0.2-1.0) mg/dL Ur Leukocyte Esterase Neg (Negative) Jayant/uL Urine RBC (Auto) 9 H (0-3) /hpf Urine Microscopic WBC 3 (0-5) /hpf Ur Squamous Epith Cells < 1 (0-5) /hpf Hyaline Casts 6-10 H (0-2) /hpf Urine Yeast (Budding) Few H (NEGATIVE) /hpf Urine Opiates Screen (NEGATIVE) Urine Methadone Screen (NEGATIVE) Ur Barbiturates Screen (NEGATIVE) Ur Phencyclidine Scrn (NEGATIVE) Ur Amphetamines Screen (NEGATIVE) U Benzodiazepines Scrn (NEGATIVE) U Oth Cocaine Metabols (NEGATIVE) U Cannabinoids Screen (NEGATIVE) 08/25/17 08/25/17 08/25/17 Range/Units 14:00 14:00 14:00 WBC 8.9 (4.8-10.8) K/uL RBC 5.22 (4.40-5.90) Mil/uL Hgb 12.9 (12.0-18.0) g/dL Hct 39.6 (35.0-51.0) % MCV 75.8 L (80.0-94.0) fl MCH 24.7 L (27.0-31.0) pg MCHC 32.6 L (33.0-37.0) g/dL RDW 14.6 H (11.5-14.5) % Plt Count 248 (130-400) K/uL MPV 8.6 (7.2-11.7) fl Neut % (Auto) 76.3 H (50.0-75.0) % Lymph % (Auto) 14.8 L (20.0-40.0) % Glenn % (Auto) 7.8 (0.0-10.0) % Eos % (Auto) 0.5 (0.0-4.0) % Baso % (Auto) 0.6 (0.0-2.0) % Neut # 6.8 (1.8-7.0) K/uL Lymph # 1.3 (1.0-4.3) K/uL Glenn # 0.7 (0.0-0.8) K/uL Eos # 0.0 (0.0-0.7) K/uL Baso # 0.1 (0.0-0.2) K/uL PT 14.6 H (9.8-13.1) Seconds INR 1.3 H (0.9-1.2) APTT 24.1 L (25.6-37.1) Seconds Sodium 145 (132-148) mmol/l Potassium 4.0 (3.6-5.0) MMOL/L Chloride 111 H (98-107) mmol/L Carbon Dioxide 20 L (22-30) mmol/L Anion Gap 18 (10-20) BUN 69 H (9-20) mg/dl Creatinine 2.0 H (0.8-1.5) mg/dl Est GFR ( Amer) 40 Est GFR (Non-Af Amer) 33 POC Glucose (mg/dL) (65-110) mg/dL Random Glucose 478 H* (75-110) mg/dL Calcium 9.0 (8.4-10.2) mg/dL Phosphorus (2.5-4.5) mg/dl Magnesium (1.6-2.3) MG/DL Total Bilirubin 0.8 (0.2-1.3) mg/dl AST 61 H (17-59) U/L ALT 41 (21-72) U/L Alkaline Phosphatase 70 (38-126) U/L Troponin I < 0.0120 (0.00-0.120) ng/mL Total Protein 8.1 (6.3-8.2) G/DL Albumin 3.5 (3.5-5.0) g/dL Globulin 4.7 H (2.2-3.9) gm/dL Albumin/Globulin Ratio 0.7 L (1.0-2.1) Triglycerides (0-149) mg/DL Cholesterol (0-199) mg/dL LDL Cholesterol Direct (0-129) mg/dL HDL Cholesterol (30-70) MG/DL Lipase 242 (23-300) U/L TSH 3rd Generation (0.46-4.68) mIU/ML Urine Color (YELLOW) Urine Clarity (Clear) Urine pH (5.0-8.0) Ur Specific [place] (1.003-1.030) Urine Protein (NEGATIVE) mg/dL Urine Glucose (UA) (Normal) mg/dL Urine Ketones (NEGATIVE) mg/dL Urine Blood (NEGATIVE) Urine Nitrate (NEGATIVE) Urine Bilirubin (NEGATIVE) Urine Urobilinogen (0.2-1.0) mg/dL Ur Leukocyte Esterase (Negative) Jayant/uL Urine RBC (Auto) (0-3) /hpf Urine Microscopic WBC (0-5) /hpf Ur Squamous Epith Cells (0-5) /hpf Hyaline Casts (0-2) /hpf Urine Yeast (Budding) (NEGATIVE) /hpf Urine Opiates Screen (NEGATIVE) Urine Methadone Screen (NEGATIVE) Ur Barbiturates Screen (NEGATIVE) Ur Phencyclidine Scrn (NEGATIVE) Ur Amphetamines Screen (NEGATIVE) U Benzodiazepines Scrn (NEGATIVE) U Oth Cocaine Metabols (NEGATIVE) U Cannabinoids Screen (NEGATIVE) 08/25/17 Range/Units 13:40 WBC (4.8-10.8) K/uL RBC (4.40-5.90) Mil/uL Hgb (12.0-18.0) g/dL Hct (35.0-51.0) % MCV (80.0-94.0) fl MCH (27.0-31.0) pg MCHC (33.0-37.0) g/dL RDW (11.5-14.5) % Plt Count (130-400) K/uL MPV (7.2-11.7) fl Neut % (Auto) (50.0-75.0) % Lymph % (Auto) (20.0-40.0) % Glenn % (Auto) (0.0-10.0) % Eos % (Auto) (0.0-4.0) % Baso % (Auto) (0.0-2.0) % Neut # (1.8-7.0) K/uL Lymph # (1.0-4.3) K/uL Glenn # (0.0-0.8) K/uL Eos # (0.0-0.7) K/uL Baso # (0.0-0.2) K/uL PT (9.8-13.1) Seconds INR (0.9-1.2) APTT (25.6-37.1) Seconds Sodium (132-148) mmol/l Potassium (3.6-5.0) MMOL/L Chloride (98-107) mmol/L Carbon Dioxide (22-30) mmol/L Anion Gap (10-20) BUN (9-20) mg/dl Creatinine (0.8-1.5) mg/dl Est GFR ( Amer) Est GFR (Non-Af Amer) POC Glucose (mg/dL) 62 L (65-110) mg/dL Random Glucose (75-110) mg/dL Calcium (8.4-10.2) mg/dL Phosphorus (2.5-4.5) mg/dl Magnesium (1.6-2.3) MG/DL Total Bilirubin (0.2-1.3) mg/dl AST (17-59) U/L ALT (21-72) U/L Alkaline Phosphatase (38-126) U/L Troponin I (0.00-0.120) ng/mL Total Protein (6.3-8.2) G/DL Albumin (3.5-5.0) g/dL Globulin (2.2-3.9) gm/dL Albumin/Globulin Ratio (1.0-2.1) Triglycerides (0-149) mg/DL Cholesterol (0-199) mg/dL LDL Cholesterol Direct (0-129) mg/dL HDL Cholesterol (30-70) MG/DL Lipase (23-300) U/L TSH 3rd Generation (0.46-4.68) mIU/ML Urine Color (YELLOW) Urine Clarity (Clear) Urine pH (5.0-8.0) Ur Specific [place] (1.003-1.030) Urine Protein (NEGATIVE) mg/dL Urine Glucose (UA) (Normal) mg/dL Urine Ketones (NEGATIVE) mg/dL Urine Blood (NEGATIVE) Urine Nitrate (NEGATIVE) Urine Bilirubin (NEGATIVE) Urine Urobilinogen (0.2-1.0) mg/dL Ur Leukocyte Esterase (Negative) Jayant/uL Urine RBC (Auto) (0-3) /hpf Urine Microscopic WBC (0-5) /hpf Ur Squamous Epith Cells (0-5) /hpf Hyaline Casts (0-2) /hpf Urine Yeast (Budding) (NEGATIVE) /hpf Urine Opiates Screen (NEGATIVE) Urine Methadone Screen (NEGATIVE) Ur Barbiturates Screen (NEGATIVE) Ur Phencyclidine Scrn (NEGATIVE) Ur Amphetamines Screen (NEGATIVE) U Benzodiazepines Scrn (NEGATIVE) U Oth Cocaine Metabols (NEGATIVE) U Cannabinoids Screen (NEGATIVE) Laboratory Results - last 24 hr 08/25/17 08/25/17 08/25/17 13:40 14:00 14:00 WBC 8.9 RBC 5.22 Hgb 12.9 Hct 39.6 MCV 75.8 L MCH 24.7 L MCHC 32.6 L RDW 14.6 H Plt Count 248 MPV 8.6 Neut % (Auto) 76.3 H Lymph % (Auto) 14.8 L Glenn % (Auto) 7.8 Eos % (Auto) 0.5 Baso % (Auto) 0.6 Neut # 6.8 Lymph # 1.3 Glenn # 0.7 Eos # 0.0 Baso # 0.1 PT INR APTT Sodium 145 Potassium 4.0 Chloride 111 H Carbon Dioxide 20 L Anion Gap 18 BUN 69 H Creatinine 2.0 H Est GFR ( Amer) 40 Est GFR (Non-Af Amer) 33 POC Glucose (mg/dL) 62 L Random Glucose 478 H* Calcium 9.0 Phosphorus Magnesium Total Bilirubin 0.8 AST 61 H ALT 41 Alkaline Phosphatase 70 Troponin I < 0.0120 Total Protein 8.1 Albumin 3.5 Globulin 4.7 H Albumin/Globulin Ratio 0.7 L Triglycerides Cholesterol LDL Cholesterol Direct HDL Cholesterol Lipase 242 TSH 3rd Generation Urine Color Urine Clarity Urine pH Ur Specific [place] Urine Protein Urine Glucose (UA) Urine Ketones Urine Blood Urine Nitrate Urine Bilirubin Urine Urobilinogen Ur Leukocyte Esterase Urine RBC (Auto) Urine Microscopic WBC Ur Squamous Epith Cells Hyaline Casts Urine Yeast (Budding) Urine Opiates Screen Urine Methadone Screen Ur Barbiturates Screen Ur Phencyclidine Scrn Ur Amphetamines Screen U Benzodiazepines Scrn U Oth Cocaine Metabols U Cannabinoids Screen 08/25/17 08/25/17 08/25/17 14:00 14:07 16:58 WBC RBC Hgb Hct MCV MCH MCHC RDW Plt Count MPV Neut % (Auto) Lymph % (Auto) Glenn % (Auto) Eos % (Auto) Baso % (Auto) Neut # Lymph # Glenn # Eos # Baso # PT 14.6 H INR 1.3 H APTT 24.1 L Sodium Potassium Chloride Carbon Dioxide Anion Gap BUN Creatinine Est GFR ( Amer) Est GFR (Non-Af Amer) POC Glucose (mg/dL) 207 H 88 Random Glucose Calcium Phosphorus Magnesium Total Bilirubin AST ALT Alkaline Phosphatase Troponin I Total Protein Albumin Globulin Albumin/Globulin Ratio Triglycerides Cholesterol LDL Cholesterol Direct HDL Cholesterol Lipase TSH 3rd Generation Urine Color Urine Clarity Urine pH Ur Specific [place] Urine Protein Urine Glucose (UA) Urine Ketones Urine Blood Urine Nitrate Urine Bilirubin Urine Urobilinogen Ur Leukocyte Esterase Urine RBC (Auto) Urine Microscopic WBC Ur Squamous Epith Cells Hyaline Casts Urine Yeast (Budding) Urine Opiates Screen Urine Methadone Screen Ur Barbiturates Screen Ur Phencyclidine Scrn Ur Amphetamines Screen U Benzodiazepines Scrn U Oth Cocaine Metabols U Cannabinoids Screen 08/25/17 08/25/17 08/26/17 23:02 23:55 01:14 WBC RBC Hgb Hct MCV MCH MCHC RDW Plt Count MPV Neut % (Auto) Lymph % (Auto) Glenn % (Auto) Eos % (Auto) Baso % (Auto) Neut # Lymph # Glenn # Eos # Baso # PT INR APTT Sodium Potassium Chloride Carbon Dioxide Anion Gap BUN Creatinine Est GFR ( Amer) Est GFR (Non-Af Amer) POC Glucose (mg/dL) 86 Random Glucose Calcium Phosphorus Magnesium Total Bilirubin AST ALT Alkaline Phosphatase Troponin I Total Protein Albumin Globulin Albumin/Globulin Ratio Triglycerides Cholesterol LDL Cholesterol Direct HDL Cholesterol Lipase TSH 3rd Generation Urine Color Magalys Urine Clarity Slighty-cloudy Urine pH 5.0 Ur Specific [place] 1.039 H Urine Protein 30 Urine Glucose (UA) 150 Urine Ketones Negative Urine Blood Moderate Urine Nitrate Negative Urine Bilirubin Negative Urine Urobilinogen 2.0 Ur Leukocyte Esterase Neg Urine RBC (Auto) 9 H Urine Microscopic WBC 3 Ur Squamous Epith Cells < 1 Hyaline Casts 6-10 H Urine Yeast (Budding) Few H Urine Opiates Screen Negative Urine Methadone Screen Negative Ur Barbiturates Screen Negative Ur Phencyclidine Scrn Negative Ur Amphetamines Screen Negative U Benzodiazepines Scrn Negative U Oth Cocaine Metabols Negative U Cannabinoids Screen Negative 08/26/17 08/26/17 08/26/17 05:10 06:09 08:54 WBC RBC Hgb Hct MCV MCH MCHC RDW Plt Count MPV Neut % (Auto) Lymph % (Auto) Glenn % (Auto) Eos % (Auto) Baso % (Auto) Neut # Lymph # Glenn # Eos # Baso # PT INR APTT Sodium 150 H Potassium 4.7 Chloride 116 H Carbon Dioxide 19 L Anion Gap 20 BUN 50 H Creatinine 1.3 Est GFR ( Amer) > 60 Est GFR (Non-Af Amer) 54 POC Glucose (mg/dL) 121 H 95 Random Glucose 118 H Calcium 9.2 Phosphorus 3.5 Magnesium 2.4 H Total Bilirubin AST ALT Alkaline Phosphatase Troponin I Total Protein Albumin Globulin Albumin/Globulin Ratio Triglycerides 108 Cholesterol 136 LDL Cholesterol Direct 52 HDL Cholesterol 28 L Lipase TSH 3rd Generation 0.55 Urine Color Urine Clarity Urine pH Ur Specific [place] Urine Protein Urine Glucose (UA) Urine Ketones Urine Blood Urine Nitrate Urine Bilirubin Urine Urobilinogen Ur Leukocyte Esterase Urine RBC (Auto) Urine Microscopic WBC Ur Squamous Epith Cells Hyaline Casts Urine Yeast (Budding) Urine Opiates Screen Urine Methadone Screen Ur Barbiturates Screen Ur Phencyclidine Scrn Ur Amphetamines Screen U Benzodiazepines Scrn U Oth Cocaine Metabols U Cannabinoids Screen 08/26/17 11:30 WBC RBC Hgb Hct MCV MCH MCHC RDW Plt Count MPV Neut % (Auto) Lymph % (Auto) Glenn % (Auto) Eos % (Auto) Baso % (Auto) Neut # Lymph # Glenn # Eos # Baso # PT INR APTT Sodium Potassium Chloride Carbon Dioxide Anion Gap BUN Creatinine Est GFR ( Amer) Est GFR (Non-Af Amer) POC Glucose (mg/dL) 92 Random Glucose Calcium Phosphorus Magnesium Total Bilirubin AST ALT Alkaline Phosphatase Troponin I Total Protein Albumin Globulin Albumin/Globulin Ratio Triglycerides Cholesterol LDL Cholesterol Direct HDL Cholesterol Lipase TSH 3rd Generation Urine Color Urine Clarity Urine pH Ur Specific [place] Urine Protein Urine Glucose (UA) Urine Ketones Urine Blood Urine Nitrate Urine Bilirubin Urine Urobilinogen Ur Leukocyte Esterase Urine RBC (Auto) Urine Microscopic WBC Ur Squamous Epith Cells Hyaline Casts Urine Yeast (Budding) Urine Opiates Screen Urine Methadone Screen Ur Barbiturates Screen Ur Phencyclidine Scrn Ur Amphetamines Screen U Benzodiazepines Scrn U Oth Cocaine Metabols U Cannabinoids Screen Fingerstick Blood Sugar Results: 121 Assessment/Plan - Assessment and Plan (Free Text) Assessment: A/P: 71 year old male admitted for acute ischemic CVA, treated with TPA for about 30 minutes, subsequently d/c due to adverse effects- bleeding from tracheostomy site. No bleeding evident this morning. 1. 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 CAD now with Hypotension/Arrythmia 3. 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 Prophylaxis Neuro: Ischemic Stroke: Awake, unable to assess mental status. Responding with shaking of his head yes/no. Repeat CT Head this afternoon. Cardiovascular: Hypotension, Bradycardia, CAD. Hypotensive: given fluid challenge with response in BP. ECG on admission did not reveal bradycardia. Echo ordered. Will obtain cardiology consult-Dr. Luis. 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 Breathing at slow rate about 10, no apparent respiratory distress. Denies dyspnea. Oxygen saturation within acceptable limits. GI: Needs swallow eval due to stroke. NPO for now. Renal/: Renal function elevated on admission, possibly 2 to dehydration. BUN remains elevated, Cr is now WNL. Will place [place] Catheter for monitoring of I/ Os. On NS at 100cc/hr. Endocrine: NIDDM, accuchecks. Currently NPO. Hematology: Unremarkable. ID: No evidence of infection, no Abx. Prophylaxis: SCDs, Case d/w [employer]. Woody PGY-2
--- NOTE | 2017-08-26 14:03 | CT ---
PROCEDURE: CT HEAD WITHOUT CONTRAST. HISTORY: CVA COMPARISON: August 25, 2017. CT head August 25, 2017. CTA neck and brain TECHNIQUE: Axial computed tomography images were obtained through the head/brain without intravenous contrast. Coronal and sagittal reconstructed images. Radiation dose: Total exam DLP = 860.73 mGy-cm. This CT exam was performed using one or more of the following dose reduction techniques: Automated exposure control, adjustment of the mA and/or kV according to patient size, and/or use of iterative reconstruction technique. FINDINGS: HEMORRHAGE: No evidence of intracranial hemorrhage. BRAIN: Cobb infarct affecting a branch vessel of the left middle cerebral artery and watershed area left parieto-occipital region. These represent new findings compared to the prior study. Incidental finding(s): Periventricular small vessel disease, multiple bilateral lacune or infarcts. No atrophy or chronic microvascular ischemic changes. VENTRICLES: Unremarkable. No hydrocephalus. CALVARIUM: Unremarkable. PARANASAL SINUSES: Unremarkable as visualized. No significant inflammatory changes. MASTOID AIR CELLS: Unremarkable as visualized. No inflammatory changes. OTHER FINDINGS: None. IMPRESSION: Areas of acute nonhemorrhagic cortical infarction corresponding to branch vessels of the left MCA as well as a smaller bland infarct watershed distribution left posterior parietal occipital region.
--- NOTE | 2017-08-26 17:05 | CP.PCM.PN ---
Subjective - Date & Time of Evaluation Date of Evaluation: 08/26/17 Time of Evaluation: 15:00 - Subjective Subjective: Mr. Howard was seen and examined today at bedside in the ICU. Overnight, the patient developed intermittent hypotension, tachycardia and required fluid boluses. He did not finish the full IV tPA dose since he had issues with bleeding from the trach site. The repeat CT head showed new areas of left MCA infarct without hemorrhagic conversion. He developed worsening aphasia and right arm weakness with an NIHSS of 12. Objective - Vital Signs/Intake and Output Vital Signs (last 24 hours): Temp Pulse Resp BP Pulse Ox 97.8 F 65 22 91/67 L 100 08/26/17 16:00 08/26/17 16:00 08/26/17 16:00 08/26/17 16:00 08/26/17 16:00 Intake and Output: 08/26/17 08/26/17 06:59 18:59 Intake Total 1450 2700 Output Total 100 1000 Balance 1350 1700 - Medications Medications: Current Medications Albuterol/Ipratropium (Duoneb 3 Mg/0.5 Mg (3 Ml) Ud) 3 ml INH RQ6 PRN PRN Reason: Shortness of Breath Sodium Chloride (Sodium Chloride 0.9%) 1,000 mls @ 100 mls/hr IV .Q10H SHANAE Stop: 08/29/17 23:59 Last Admin: 08/26/17 00:00 Dose: 100 mls/hr Insulin Human Regular (Humulin R) 1 units SC ACHS SHANAE PRN Reason: Protocol Last Admin: 08/26/17 14:37 Dose: Not Given - Labs Labs: 08/25/17 14:00 08/26/17 05:10 PT 14.6 Seconds (9.8-13.1) H 08/25/17 14:00 INR 1.3 (0.9-1.2) H 08/25/17 14:00 APTT 24.1 Seconds (25.6-37.1) L 08/25/17 14:00 - Neurological Exam Neurological Exam: Altered, Awake Neuro motor strength exam: Left Upper Extremity: 4, Right Upper Extremity: 0, Left Lower Extremity: 3, Right Lower Extremity: 3 Additional comments: Right side visual deficits noted. Assessment and Plan (1) Acute ischemic stroke Assessment & Plan: Currently, the patient is hypotensive and requiring fluids and may need pressors to increase BP to normal range. Since the patient did not complete the full dose of tPA, and it has been nearly 24 hours, I recommend starting aspirin and Plavix since there is no hemorrhagic conversion and the patient remains at high risk for subsequent stroke. Follow up on the echocardiogram results is needed. 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 If the patient continues to worsen, we may need to discuss less aggressive measures. Status: Acute
--- NOTE | 2017-08-26 17:18 | PCM.PROC ---
Procedures Attestation:: I certify that I have explained the specified Operation(s) or Procedure(s), risks, benefits and reasonable alternatives to the Patient and/or other person responsible. The opportunity was given to ask questions and all questions answered - Central Line Placement Right Subclavian Triple Lumen Catheter Aseptic technique was employed throughout the procedure: Full sterile barriers ( mask, hair cover, sterile gown, sterile gloves), Full body sterile drape, Chloraprep Antiseptic: 30 second prep for IJ or SC sites CVP Time Out Performed: Yes Central Line Prep: Chlorhexidine-Alcohol Combination Ultrasound Used for Placement: No Central Line Lumen Inserted: triple Central Line Length: 16 cm Post Procedure: Sutured in Place, Good Blood Return, All Ports Aspirated, Flushed, Capped, Sterile Dressing Applied Secured by: Suture Post procedure dressing: Clear vapor permeable, Chlorhexidine disc (Biopatch) Post Procedure X-Ray: Yes Patient Tolerated Procedure: Well Additional Comments: Done under emergent conditions in ICU for persistent hypotension despite approx 2 liter fluid challenge today in the presence of worsening and evolving Left CVA ; for vasopressor infusion. Post procedure CXR shows satisfactory placement of tip of TLC in distal SVC, no PTX seen.
--- NOTE | 2017-08-26 17:41 | CP.CCUPN ---
CCU Subjective - Physician Review Subjective (Free Text): Awake and alert, nonverbal due to longstanding trach for laryngeal CA, but comprehends and moves head in yes/no fashion appropriately. No new focal defects , but moving R side less today compared to previous descriptions. No further bleeding nor clots from trach site as described yesterday during latter half of TPA infusion. NIHSS now . Other vitals and I/O's reviewed. Hypotensive and bradycardic, unclear if related to CVA versus other cardiogenic etiology. ROS: No other pertinent negs or positives on 10+ system review. PMSFH: All other Nursing and physician documentation reviewed to date; no new pertinent info noted relevant to current medical problems. IMPRESSION / MAJOR PROBLEMS NOW: 1. Acute CVA with R hemiplegia 2. Hypotension / Hypovolemia 3. 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 H/o Laryngeal CA PLAN: 1. IV Vasopressors (Norepinephrine, for now) to raise SBP to maintain cerebral blood flow. 2. ASA, Plavix, statin; will need NGT; unless directed otherwise by Neurology. 3. Cardiology eval. 4. IVF hydration with NSS. Watch fluid balance. 5. SCDs, and PPi IV. CCU Objective - Vital Signs / Intake & Output Vital Signs (Last 4 hours): Vital Signs Temp Pulse Resp BP Pulse Ox 08/26/17 16:00 97.8 F 65 22 91/67 L 100 08/26/17 14:00 96 H 17 95/52 L 100 Intake and Output (Last 8hrs): Intake & Output 08/26/17 08/26/17 08/26/17 06:59 14:59 22:59 Intake Total 1450 2500 200 Output Total 100 1000 Balance 1350 1500 200 Intake: IV 450 2500 200 Intake, Piggyback 1000 Output: Urine 100 1000 Urine, Voided 100 1000 Other: # Voids Urine, Voided 1 - Physical Exam Head: Positive for: Atraumatic, Normocephalic Pupils: Positive for: PERRL Extroacular Muscles: Positive for: Gaze Palsy (Rightward) Conjunctiva: Positive for: Normal Mouth: Positive for: Dry Neck: Positive for: Other (trach collar) Respiratory/Chest: Positive for: Good Air Exchange. Negative for: Respiratory Distress, Accessory Muscle Use, Wheezes, Rales, Tachypneic Cardiovascular: Positive for: Bradycardic, Other (left radial barely palpable, right radial palpable, bilateral dp/pt palable, femoral pulses strong.) Abdomen: Negative for: Tenderness, Distention Upper Extremity: Positive for: Normal Inspection, Other (unable to move right upper extremity, left upper extremity 2/5). Negative for: Edema, Normal ROM, Swelling, Erythema Lower Extremity: Positive for: Normal Inspection, Edema (trace), Other (able to lift bilateral LE against gravity, strength 3/5). Negative for: Normal ROM, Swelling Neurological: Positive for: Other (gait deferred, R hemiplegia) Skin: Positive for: Warm, Dry Psychiatric: Positive for: Alert, Oriented x 3, Other (awake) - Medications Active Medications: Active Medications Generic Name Dose Route Start Last Admin Trade Name Freq PRN Reason Stop Dose Admin Albuterol/Ipratropium 3 ml 08/25/17 18:15 Duoneb 3 Mg/0.5 Mg (3 Ml) Ud INH RQ6 PRN Shortness of Breath Sodium Chloride 1,000 mls @ 100 mls/hr 08/26/17 00:00 08/26/17 00:00 Sodium Chloride 0.9% IV 08/29/17 23:59 100 mls/hr .Q10H SHANAE Administration Norepinephrine Bitartrate 4 mg 254 mls @ 9.52 mls/hr 08/26/17 17:45 / Dextrose IV .Q24H [facility] Protocol 2.5 MCG/MIN Insulin Human Regular 1 units 08/25/17 22:00 08/26/17 14:37 Humulin R SC Not Given ACHS [facility] Protocol - Patient Studies Lab Studies: Lab Studies 08/26/17 08/26/17 08/26/17 Range/Units 11:30 08:54 06:09 Sodium (132-148) mmol/l Potassium (3.6-5.0) MMOL/L Chloride (98-107) mmol/L Carbon Dioxide (22-30) mmol/L Anion Gap (10-20) BUN (9-20) mg/dl Creatinine (0.8-1.5) mg/dl Est GFR ( Amer) Est GFR (Non-Af Amer) POC Glucose (mg/dL) 92 95 121 H (65-110) mg/dL Random Glucose (75-110) mg/dL Calcium (8.4-10.2) mg/dL Phosphorus (2.5-4.5) mg/dl Magnesium (1.6-2.3) MG/DL Triglycerides (0-149) mg/DL Cholesterol (0-199) mg/dL LDL Cholesterol Direct (0-129) mg/dL HDL Cholesterol (30-70) MG/DL TSH 3rd Generation (0.46-4.68) mIU/ML Urine Color (YELLOW) Urine Clarity (Clear) Urine pH (5.0-8.0) Ur Specific [place] (1.003-1.030) Urine Protein (NEGATIVE) mg/dL Urine Glucose (UA) (Normal) mg/dL Urine Ketones (NEGATIVE) mg/dL Urine Blood (NEGATIVE) Urine Nitrate (NEGATIVE) Urine Bilirubin (NEGATIVE) Urine Urobilinogen (0.2-1.0) mg/dL Ur Leukocyte Esterase (Negative) Jayant/uL Urine RBC (Auto) (0-3) /hpf Urine Microscopic WBC (0-5) /hpf Ur Squamous Epith Cells (0-5) /hpf Hyaline Casts (0-2) /hpf Urine Yeast (Budding) (NEGATIVE) /hpf Urine Opiates Screen (NEGATIVE) Urine Methadone Screen (NEGATIVE) Ur Barbiturates Screen (NEGATIVE) Ur Phencyclidine Scrn (NEGATIVE) Ur Amphetamines Screen (NEGATIVE) U Benzodiazepines Scrn (NEGATIVE) U Oth Cocaine Metabols (NEGATIVE) U Cannabinoids Screen (NEGATIVE) 08/26/17 08/26/17 08/25/17 Range/Units 05:10 01:14 23:55 Sodium 150 H (132-148) mmol/l Potassium 4.7 (3.6-5.0) MMOL/L Chloride 116 H (98-107) mmol/L Carbon Dioxide 19 L (22-30) mmol/L Anion Gap 20 (10-20) BUN 50 H (9-20) mg/dl Creatinine 1.3 (0.8-1.5) mg/dl Est GFR ( Amer) > 60 Est GFR (Non-Af Amer) 54 POC Glucose (mg/dL) 86 (65-110) mg/dL Random Glucose 118 H (75-110) mg/dL Calcium 9.2 (8.4-10.2) mg/dL Phosphorus 3.5 (2.5-4.5) mg/dl Magnesium 2.4 H (1.6-2.3) MG/DL Triglycerides 108 (0-149) mg/DL Cholesterol 136 (0-199) mg/dL LDL Cholesterol Direct 52 (0-129) mg/dL HDL Cholesterol 28 L (30-70) MG/DL TSH 3rd Generation 0.55 (0.46-4.68) mIU/ML Urine Color (YELLOW) Urine Clarity (Clear) Urine pH (5.0-8.0) Ur Specific [place] (1.003-1.030) Urine Protein (NEGATIVE) mg/dL Urine Glucose (UA) (Normal) mg/dL Urine Ketones (NEGATIVE) mg/dL Urine Blood (NEGATIVE) Urine Nitrate (NEGATIVE) Urine Bilirubin (NEGATIVE) Urine Urobilinogen (0.2-1.0) mg/dL Ur Leukocyte Esterase (Negative) Jayant/uL Urine RBC (Auto) (0-3) /hpf Urine Microscopic WBC (0-5) /hpf Ur Squamous Epith Cells (0-5) /hpf Hyaline Casts (0-2) /hpf Urine Yeast (Budding) (NEGATIVE) /hpf Urine Opiates Screen Negative (NEGATIVE) Urine Methadone Screen Negative (NEGATIVE) Ur Barbiturates Screen Negative (NEGATIVE) Ur Phencyclidine Scrn Negative (NEGATIVE) Ur Amphetamines Screen Negative (NEGATIVE) U Benzodiazepines Scrn Negative (NEGATIVE) U Oth Cocaine Metabols Negative (NEGATIVE) U Cannabinoids Screen Negative (NEGATIVE) 08/25/17 Range/Units 23:02 Sodium (132-148) mmol/l Potassium (3.6-5.0) MMOL/L Chloride (98-107) mmol/L Carbon Dioxide (22-30) mmol/L Anion Gap (10-20) BUN (9-20) mg/dl Creatinine (0.8-1.5) mg/dl Est GFR ( Amer) Est GFR (Non-Af Amer) POC Glucose (mg/dL) (65-110) mg/dL Random Glucose (75-110) mg/dL Calcium (8.4-10.2) mg/dL Phosphorus (2.5-4.5) mg/dl Magnesium (1.6-2.3) MG/DL Triglycerides (0-149) mg/DL Cholesterol (0-199) mg/dL LDL Cholesterol Direct (0-129) mg/dL HDL Cholesterol (30-70) MG/DL TSH 3rd Generation (0.46-4.68) mIU/ML Urine Color [place] (YELLOW) Urine Clarity Slighty-cloudy (Clear) Urine pH 5.0 (5.0-8.0) Ur Specific [place] 1.039 H (1.003-1.030) Urine Protein 30 (NEGATIVE) mg/dL Urine Glucose (UA) 150 (Normal) mg/dL Urine Ketones Negative (NEGATIVE) mg/dL Urine Blood Moderate (NEGATIVE) Urine Nitrate Negative (NEGATIVE) Urine Bilirubin Negative (NEGATIVE) Urine Urobilinogen 2.0 (0.2-1.0) mg/dL Ur Leukocyte Esterase Neg (Negative) Jayant/uL Urine RBC (Auto) 9 H (0-3) /hpf Urine Microscopic WBC 3 (0-5) /hpf Ur Squamous Epith Cells < 1 (0-5) /hpf Hyaline Casts 6-10 H (0-2) /hpf Urine Yeast (Budding) Few H (NEGATIVE) /hpf Urine Opiates Screen (NEGATIVE) Urine Methadone Screen (NEGATIVE) Ur Barbiturates Screen (NEGATIVE) Ur Phencyclidine Scrn (NEGATIVE) Ur Amphetamines Screen (NEGATIVE) U Benzodiazepines Scrn (NEGATIVE) U Oth Cocaine Metabols (NEGATIVE) U Cannabinoids Screen (NEGATIVE) Laboratory Results - last 24 hr 08/25/17 08/25/17 08/26/17 23:02 23:55 01:14 Sodium Potassium Chloride Carbon Dioxide Anion Gap BUN Creatinine Est GFR ( Amer) Est GFR (Non-Af Amer) POC Glucose (mg/dL) 86 Random Glucose Calcium Phosphorus Magnesium Triglycerides Cholesterol LDL Cholesterol Direct HDL Cholesterol TSH 3rd Generation Urine Color Magalys Urine Clarity Slighty-cloudy Urine pH 5.0 Ur Specific [place] 1.039 H Urine Protein 30 Urine Glucose (UA) 150 Urine Ketones Negative Urine Blood Moderate Urine Nitrate Negative Urine Bilirubin Negative Urine Urobilinogen 2.0 Ur Leukocyte Esterase Neg Urine RBC (Auto) 9 H Urine Microscopic WBC 3 Ur Squamous Epith Cells < 1 Hyaline Casts 6-10 H Urine Yeast (Budding) Few H Urine Opiates Screen Negative Urine Methadone Screen Negative Ur Barbiturates Screen Negative Ur Phencyclidine Scrn Negative Ur Amphetamines Screen Negative U Benzodiazepines Scrn Negative U Oth Cocaine Metabols Negative U Cannabinoids Screen Negative 01/31/18 01/31/18 01/31/18 05:10 06:09 08:54 Sodium 150 H Potassium 4.7 Chloride 116 H Carbon Dioxide 19 L Anion Gap 20 BUN 50 H Creatinine 1.3 Est GFR ( Amer) > 60 Est GFR (Non-Af Amer) 54 POC Glucose (mg/dL) 121 H 95 Random Glucose 118 H Calcium 9.2 Phosphorus 3.5 Magnesium 2.4 H Triglycerides 108 Cholesterol 136 LDL Cholesterol Direct 52 HDL Cholesterol 28 L TSH 3rd Generation 0.55 Urine Color Urine Clarity Urine pH Ur Specific [place] Urine Protein Urine Glucose (UA) Urine Ketones Urine Blood Urine Nitrate Urine Bilirubin Urine Urobilinogen Ur Leukocyte Esterase Urine RBC (Auto) Urine Microscopic WBC Ur Squamous Epith Cells Hyaline Casts Urine Yeast (Budding) Urine Opiates Screen Urine Methadone Screen Ur Barbiturates Screen Ur Phencyclidine Scrn Ur Amphetamines Screen U Benzodiazepines Scrn U Oth Cocaine Metabols U Cannabinoids Screen 08/26/17 11:30 Sodium Potassium Chloride Carbon Dioxide Anion Gap BUN Creatinine Est GFR ( Amer) Est GFR (Non-Af Amer) POC Glucose (mg/dL) 92 Random Glucose Calcium Phosphorus Magnesium Triglycerides Cholesterol LDL Cholesterol Direct HDL Cholesterol TSH 3rd Generation Urine Color Urine Clarity Urine pH Ur Specific [place] Urine Protein Urine Glucose (UA) Urine Ketones Urine Blood Urine Nitrate Urine Bilirubin Urine Urobilinogen Ur Leukocyte Esterase Urine RBC (Auto) Urine Microscopic WBC Ur Squamous Epith Cells Hyaline Casts Urine Yeast (Budding) Urine Opiates Screen Urine Methadone Screen Ur Barbiturates Screen Ur Phencyclidine Scrn Ur Amphetamines Screen U Benzodiazepines Scrn U Oth Cocaine Metabols U Cannabinoids Screen Fingerstick Blood Sugar Results: 92 Review of Systems - Review of Systems All systems: reviewed and no additional remarkable complaints except (as above) Critical Care Progress Note - Nutrition Nutrition: Nutrition Category Date Time Status NPO Diet [DIET] Diets 08/26/17 Dinner Active
--- NOTE | 2017-08-26 17:45 | CP.PCM.HP ---
History of Present Illness - History of Present Illness History of Present Illness: 71 yr old M [facility] resident brought in by ambulance for right arm weakness and right facial droop noticed by [facility] staff within the AM shift. PMHx includes laryngectomy s/p larynx cancer, HTN, COPD, peripheral edema , schizophrenia and depression. At baseline patient is non-verbal d/t laryngectomy. Patient nods in response to questions: denies chest pain, SOB, nausea or abdominal pain. Per [facility] records: patient was on a regular diet. PMD: Dr. Chapman at [facility] PMHx: laryngectomy s/p larynx cancer, HTN, COPD, peripheral edema, schizophrenia and depression SurgHx: laryngectomy FMHx: noncontributory SocHx: denies smoking, Etoh or drugs Medications: see medication reconciliation Allergies: NKDA Present on Admission - Present on Admission Any Indicators Present on Admission: No History of DVT/PE: No History of Uncontrolled Diabetes: No Urinary Catheter: No Decubitus Ulcer Present: No History Surgical Site Infection Following: None Review of Systems - Review of Systems Systems not reviewed;Unavailable: Language Barrier (limited due to patient being non-verbal at baseline s/p laryngectomy) Review of Systems: Patient nods no to: denies dizziness, chest pain, abdominal pain, nausea, chills , body aches, headache. Past Patient History - Past Medical History & Family History Past Medical History?: Yes - Past Social History Smoking Status: Never Smoked - CARDIAC Hx Cardiac Disorders: Yes - PULMONARY Hx Chronic Obstructive Pulmonary Disease (COPD): Yes Other/Comment: Larynx CA - HEENT Hx HEENT Problems: Yes - ENDOCRINE/METABOLIC Hx Endocrine Disorders: Yes - HEMATOLOGICAL/ONCOLOGICAL Hx Blood Disorders: Yes - MUSCULOSKELETAL/RHEUMATOLOGICAL Hx Falls: No - GENITOURINARY/GYNECOLOGICAL Hx Genitourinary Disorders: Yes - PSYCHIATRIC Hx Depression: Yes Hx Schizophrenia: Yes Hx Substance Use: No - SURGICAL HISTORY Hx Surgeries: Yes Hx Amputation: Yes (partially left fingers (pointer,middle, & ring)) Other/Comment: Laryngectomy;TRACHEOSTOMY 1963 - ANESTHESIA Hx Anesthesia: Yes Hx Anesthesia Reactions: No Hx Malignant Hyperthermia: No Meds Allergies/Adverse Reactions: Allergies Allergy/AdvReac Type Severity Reaction Status Date / Time No Known Allergies Allergy Verified 11/03/16 10:43 Physical Exam - Constitutional Appears: No Acute Distress - Head Exam Head Exam: ATRAUMATIC, NORMOCEPHALIC - Eye Exam Eye Exam: EOMI, PERRL - ENT Exam ENT Exam: Mucous Membranes Moist Additional comments: tracheostomy tube in place, no discharge, no bleeding - Neck Exam Neck exam: Negative for: Lymphadenopathy - Respiratory Exam Respiratory Exam: Clear to Auscultation Bilateral, NORMAL BREATHING PATTERN - Cardiovascular Exam Cardiovascular Exam: REGULAR RHYTHM, +S1, +S2 - GI/Abdominal Exam GI & Abdominal Exam: Normal Bowel Sounds, Soft. 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 - Neurological Exam Neurological exam: Alert - Psychiatric Exam Psychiatric exam: Flat Affect - Skin Skin Exam: Dry, Warm Results - Vital Signs Recent Vital Signs: Last Vital Signs Temp 97.8 F 08/26/17 16:00 Pulse 65 08/26/17 16:00 Resp 22 08/26/17 16:00 BP 91/67 L 08/26/17 16:00 Pulse Ox 100 08/26/17 16:00 - Labs Result Diagrams: 08/25/17 14:00 08/26/17 05:10 Labs: Laboratory Results - last 24 hr 08/25/17 08/25/17 08/26/17 23:02 23:55 01:14 Sodium Potassium Chloride Carbon Dioxide Anion Gap BUN Creatinine Est GFR ( Amer) Est GFR (Non-Af Amer) POC Glucose (mg/dL) 86 Random Glucose Calcium Phosphorus Magnesium Triglycerides Cholesterol LDL Cholesterol Direct HDL Cholesterol TSH 3rd Generation Urine Color Magalys Urine Clarity Slighty-cloudy Urine pH 5.0 Ur Specific [place] 1.039 H Urine Protein 30 Urine Glucose (UA) 150 Urine Ketones Negative Urine Blood Moderate Urine Nitrate Negative Urine Bilirubin Negative Urine Urobilinogen 2.0 Ur Leukocyte Esterase Neg Urine RBC (Auto) 9 H Urine Microscopic WBC 3 Ur Squamous Epith Cells < 1 Hyaline Casts 6-10 H Urine Yeast (Budding) Few H Urine Opiates Screen Negative Urine Methadone Screen Negative Ur Barbiturates Screen Negative Ur Phencyclidine Scrn Negative Ur Amphetamines Screen Negative U Benzodiazepines Scrn Negative U Oth Cocaine Metabols Negative U Cannabinoids Screen Negative 0108/26/17 08/26/17 05:10 06:09 08:54 Sodium 150 H Potassium 4.7 Chloride 116 H Carbon Dioxide 19 L Anion Gap 20 BUN 50 H Creatinine 1.3 Est GFR ( Amer) > 60 Est GFR (Non-Af Amer) 54 POC Glucose (mg/dL) 121 H 95 Random Glucose 118 H Calcium 9.2 Phosphorus 3.5 Magnesium 2.4 H Triglycerides 108 Cholesterol 136 LDL Cholesterol Direct 52 HDL Cholesterol 28 L TSH 3rd Generation 0.55 Urine Color Urine Clarity Urine pH Ur Specific [place] Urine Protein Urine Glucose (UA) Urine Ketones Urine Blood Urine Nitrate Urine Bilirubin Urine Urobilinogen Ur Leukocyte Esterase Urine RBC (Auto) Urine Microscopic WBC Ur Squamous Epith Cells Hyaline Casts Urine Yeast (Budding) Urine Opiates Screen Urine Methadone Screen Ur Barbiturates Screen Ur Phencyclidine Scrn Ur Amphetamines Screen U Benzodiazepines Scrn U Oth Cocaine Metabols U Cannabinoids Screen 08/26/17 11:30 Sodium Potassium Chloride Carbon Dioxide Anion Gap BUN Creatinine Est GFR ( Amer) Est GFR (Non-Af Amer) POC Glucose (mg/dL) 92 Random Glucose Calcium Phosphorus Magnesium Triglycerides Cholesterol LDL Cholesterol Direct HDL Cholesterol TSH 3rd Generation Urine Color Urine Clarity Urine pH Ur Specific [place] Urine Protein Urine Glucose (UA) Urine Ketones Urine Blood Urine Nitrate Urine Bilirubin Urine Urobilinogen Ur Leukocyte Esterase Urine RBC (Auto) Urine Microscopic WBC Ur Squamous Epith Cells Hyaline Casts Urine Yeast (Budding) Urine Opiates Screen Urine Methadone Screen Ur Barbiturates Screen Ur Phencyclidine Scrn Ur Amphetamines Screen U Benzodiazepines Scrn U Oth Cocaine Metabols U Cannabinoids Screen Assessment & Plan - Assessment and Plan (Free Text) Assessment: 71 yr old M admitted for acute CVA, s/p TPA administered in emergency department. NIH score 16, patient is noverbal at baseline s/p laryngectomy for larynx cancer. -continue management in ICU -NPO diey -supplemental O2 via tracheostomy -speech and swallow evaluation -Cardiology on consult: will recommendations -Neurology on consult: will follow recommendations -DVT prophylaxis with SCD's -PT/OT - Date & Time Date: 08/26/17 Time: 10:00
--- NOTE | 2017-08-26 17:56 | RAD ---
HISTORY: post Subclavian Vein TLC COMPARISON: August 25, 2017. FINDINGS: LUNGS: No active pulmonary disease. PLEURA: No significant pleural effusion identified, no pneumothorax apparent. CARDIOVASCULAR: Venous access catheter in satisfactory position. No pneumothorax following placement of right TLC. The tip is in the SVC. OSSEOUS STRUCTURES: No significant abnormalities. VISUALIZED UPPER ABDOMEN: Normal. OTHER FINDINGS: Stable, satisfactory position of tracheostomy device. IMPRESSION: No adverse findings/pneumothorax or other pathologic process following right subclavian line placement.
--- NOTE | 2017-08-26 23:07 | CON ---
DATE: CARDIOLOGY CONSULTATION HISTORY OF PRESENT ILLNESS: The patient is a 71-year-old male who is brought in from Intermediate because of right-sided weakness and right facial drooping. The patient has tracheostomy. The patient did receive TPA; however, it was not completed because of bleeding from the tracheostomy site. Head and neck CT angio revealed intraluminal thrombus in the left subclavian artery at its origin extending to the proximal subclavian artery distal to the origin of the left vertebral artery with complete occlusion of the cervical segment of the left vertebral artery. Patent and dominant right vertebral artery. The second head CT scan revealed findings concerning right mid cerebral artery territory infarct involving the right insula and basal ganglia with concern of thrombus in the right middle cerebral artery. Old lacunar infarct in the bilateral basal ganglia and right thalamus. Mild chronic microangiopathic changes. The patient was noted today to have sinus bradycardia at times. SOCIAL HISTORY: Patient is a prison resident. MEDICATIONS: Albuterol inhaler q. 6 hours, normal saline at 100 mL an hour. REVIEW OF SYSTEMS: No reported seizures and no reported hypotension, no reported ventricular tachycardia. PHYSICAL EXAMINATION: GENERAL: The patient is an elderly male who is aphasic, but follows verbal commands. VITAL SIGNS: Blood pressure 117/51, heart rate 101, temperature 98, respirations 17. HEENT: Normocephalic. NECK: Tracheostomy opening is noted. CHEST: Bilateral rhonchi. HEART: S1, S2 regular. EXTREMITIES: No edema. NEUROLOGIC: Revealed right hemiplegia with right facial drooping. LABORATORY DATA: SMA-7: Sodium 150, potassium 4.7, chloride 116, CO2 of 19, glucose 118, BUN 50, creatinine 1.3. Troponin is 0.012. Hemoglobin, hematocrit, white count and platelet count are within normal limit. EKG done in Emergency revealed normal sinus rhythm, 87, left atrial enlargement, possible old inferior infarct. ASSESSMENT: 1. Acute cerebrovascular accident with thrombotic occlusion of the left vertebral artery. 2. 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 3. Periods of sinus bradycardia. 4. Dehydration with hypernatremia and prerenal azotemia. 5. Uncontrolled diabetes mellitus. RECOMMENDATIONS: Patient is being maintained in ICU. Continue albuterol inhaler and normal saline infusion, obtain a bedside echocardiogram, consider therapeutic anticoagulation as there is no neurological contraindication. TSH level was performed already and is within normal limit. Jose D Luis MD
[2017-08-27 05:13] LABS: MEAN CELL VOLUME 76.1 fl (80.0-94.0); MEAN CORPUSCULAR HEMOGLOBIN 24.2 pg (27.0-31.0); MEAN CORPUSCULAR HGB CONC 31.8 g/dL (33.0-37.0); RBC 5.76 Mil/uL (4.40-5.90); RED CELL DISTRIBUTION WIDTH 14.7 % (11.5-14.5)
[2017-08-27 05:21] LABS: ALB/GLOB RATIO 0.7 (1.0-2.1); ALBUMIN 3.3 g/dL (3.5-5.0); ALT/SGPT 46 U/L (21-72); AST/SGOT 71 U/L (17-59); BLOOD UREA NITROGEN 17 mg/dl (9-20); CALCIUM 8.5 mg/dL (8.4-10.2); GFR AFRICAN-AMERICAN > 60; GFR NON-AFRICAN AMERICAN > 60
[2017-08-27] MEDS ORDERED: Aspirin 325 mg EC Tablets PO SCH (06:00)
[2017-08-27] MEDS: Insulin Regular 100 units/ml SC SCH ×4 (07:10→22:00)
--- NOTE | 2017-08-27 07:53 | CARD ---
APPROVED REPORT EXAM: Two-dimensional and M-mode echocardiogram with Doppler and color Doppler. Other Information Quality : AverageRhythm : NSR INDICATION CVA/TIA 2D DIMENSIONS IVSd1.49 (0.7-1.1cm)LVDd4.13 (3.9-5.9cm) LVOT Diameter2.63 (1.8-2.4cm)PWd1.32 (0.7-1.1cm) IVSs2.05 (0.8-1.2cm)LVDs2.65 (2.5-4.0cm) FS (%) 35.8 %PWs1.41 (0.8-1.2cm) M-Mode DIMENSIONS Left Atrium (MM)3.28 (2.5-4.0cm)IVSd1.19 (0.7-1.1cm) Aortic Root4.05 (2.2-3.7cm)LVDd4.40 (4.0-5.6cm) Aortic Cusp Exc.1.96 (1.5-2.0cm)PWd1.47 (0.7-1.1cm) IVSs1.75 cmFS (%) 19 % LVDs3.56 (2.0-3.8cm)PWs1.82 cm Mitral Valve E/A ratio0.0 TDI E/Lateral E'0.0E/Medial E'0.0 Pulmonary Valve PV Peak Ajphafzj27.4cm/s LEFT VENTRICLE The left ventricle is normal size. There is mild concentric left ventricular hypertrophy. Left ventricle systolic function is mildly to moderately impaired. The Ejection Fraction is 35-40%. Septum had a "rocking" motion possibly due to IVCD. Apical 1/3 of septum, apx and apical 1/2 if inferior wall were hypokinetic Other segments moved normally Transmitral Doppler flow pattern is Grade I-abnormal relaxation pattern. RIGHT VENTRICLE The right ventricle is normal size. The right ventricle is borderline hypertrophied. The right ventricular systolic function is normal. ATRIA The left atrium size is normal. The right atrium size is normal. AORTIC VALVE The aortic valve is mildly sclerotic. No aortic regurgitation is present. There is no aortic valvular stenosis. MITRAL VALVE The mitral valve is normal in structure. There is no evidence of mitral valve prolapse. There is no mitral valve stenosis. Mitral regurgitation is mild to moderate. TRICUSPID VALVE The tricuspid valve is normal in structure. There is no tricuspid valve regurgitation noted. PULMONIC VALVE The pulmonary valve is normal in structure. There is mild pulmonic valvular regurgitation. GREAT VESSELS The aortic root is normal in size. The IVC is normal in size and collapses >50% with inspiration. PERICARDIAL EFFUSION The pericardium appears normal. <Conclusion> The left ventricle is normal size. There is mild concentric left ventricular hypertrophy. Septum had a "rocking" motion possibly due to IVCD. Apical 1/3 of septum, apx and apical 1/2 if inferior wall were hypokinetic Other segments moved normally Left ventricle systolic function is mildly to moderately impaired. The Ejection Fraction is 35-40%. Transmitral Doppler flow pattern is Grade I-abnormal relaxation pattern. Mitral regurgitation is mild to moderate.
--- NOTE | 2017-08-27 08:28 | CP.PCM.PN ---
Subjective - Date & Time of Evaluation Date of Evaluation: 08/27/17 Time of Evaluation: 08:16 - Subjective Subjective: Mr. Howard was seen and examined at the bedside in ICU. He is non verbal, communicated using non-verbal cues such as nodding his head. He remains with right facial palsy and right side paralysis. He is able to minimally move his right leg in response to tactile stimuli. He is able to follow simple commands such as opening his mouth, raising his left upper and lower extremities. He has a trach collar connected to an oxygen. His blood pressure remains within the 90's receiving vasopressor. He remains on 1:1 sitter for patient safety. There was no untoward events overnight. Objective - Vital Signs/Intake and Output Vital Signs (last 24 hours): Temp Pulse Resp BP Pulse Ox 99.4 F 95 H 24 104/77 100 08/27/17 04:00 08/27/17 07:00 08/27/17 07:00 08/27/17 07:00 08/27/17 07:00 Intake and Output: 08/27/17 08/27/17 06:59 18:59 Intake Total 1527 Output Total 1700 Balance -173 - Medications Medications: Current Medications Albuterol/Ipratropium (Duoneb 3 Mg/0.5 Mg (3 Ml) Ud) 3 ml INH RQ6 PRN PRN Reason: Shortness of Breath Aspirin (Ecotrin) 325 mg PO DAILY SHANAE Aspirin (Aspirin Supp) 300 mg FL ONCE ONE Stop: 08/27/17 09:01 Clopidogrel Bisulfate (Plavix) 75 mg PO DAILY SHANAE Sodium Chloride (Sodium Chloride 0.9%) 1,000 mls @ 100 mls/hr IV .Q10H SHANAE Stop: 08/29/17 23:59 Last Admin: 08/26/17 22:56 Dose: 100 mls/hr Norepinephrine Bitartrate 4 mg (/ Dextrose) 254 mls @ 9.52 mls/hr IV .Q24H SHANAE ; 2.5 MCG/MIN PRN Reason: Protocol Last Admin: 08/27/17 03:05 Dose: 7.5 mcg/min, 28.57 mls/hr Norepinephrine Bitartrate 4 mg (/ Dextrose) 254 mls @ 9.52 mls/hr IV .Q24H SHANAE ; 2.5 MCG/MIN PRN Reason: Protocol Last Admin: 08/27/17 06:51 Dose: Not Given Insulin Human Regular (Humulin R) 1 units SC ACHS SHANAE PRN Reason: Protocol Last Admin: 08/27/17 07:10 Dose: Not Given - Labs Labs: 08/27/17 04:20 08/27/17 04:20 PT 14.6 Seconds (9.8-13.1) H 08/25/17 14:00 INR 1.3 (0.9-1.2) H 08/25/17 14:00 APTT 24.1 Seconds (25.6-37.1) L 08/25/17 14:00 - Constitutional Appears: No Acute Distress - Head Exam Head Exam: NORMAL INSPECTION - Neurological Exam Neurological Exam: Alert, Awake Neuro motor strength exam: Left Upper Extremity: 4, Right Upper Extremity: 0, Left Lower Extremity: 4, Right Lower Extremity: 0 Additional comments: He is able to answer questions using non verbal cues and follow simple commands. Sensation is asymmetrical. less sensitive in his right side. Assessment and Plan (1) Acute ischemic stroke Assessment & Plan: Case discussed with Dr. Arauz, continue all current medical, physical, occupational, and speech therapies. Recommend normotensive. If the patient unable to pass swallowing evaluation to insert NGT for feeding and medication purposes. Status: Acute
--- NOTE | 2017-08-27 09:50 | CT ---
APPROVED REPORT EKG Measurement Heart [id number] <Conclusion> Normal sinus rhythm with sinus arrhythmia Possible Left atrial enlargement Possible Inferior infarct, age undetermined Abnormal ECG
--- NOTE | 2017-08-27 10:09 | CP.CCUPN ---
<NiravsantosharanCarolyn - Last Filed: 08/27/17 16:08> CCU Subjective - Physician Review Subjective (Free Text): 08/27/17 10:13 Patient was seen and examined at bedside with business analyst Patient eating pureed without distress. No respiratory distress noted at the time of evaluation. Deion shook her head to No when asked for chest pain, SOB , pain or other symptoms. No evidence of bleeding this morning. VS on monitor: BP: 110s systolic, HR: 100s Following commands. Patient was able to slightly raise his LUE and LLE, but no moving RUE and RLL. Still has a right facial drop. Patient is not verbal. VS as per EMR: T: 99.6 F, pulse rate: 102, BP: 114/76, oxygen sat 98 % on 50 FiO2 Noted a large discrepancy between right and left arm BP, Right arm showing higher BP levels: 150s/110s, and left arm showing lower levels: 80s/50s Labs today reviewed He had head CT repeated yesterday as per Code stroke protocol CCU Objective - Vital Signs / Intake & Output Vital Signs (Last 4 hours): Vital Signs Temp Pulse Resp BP Pulse Ox 08/27/17 08:00 99.6 F 102 H 21 114/76 100 08/27/17 07:00 95 H 24 104/77 100 Intake and Output (Last 8hrs): Intake & Output 08/26/17 08/27/17 08/27/17 22:59 06:59 14:59 Intake Total 726 1013 Output Total 1700 Balance 726 -687 Intake: IV 612 842 Intake, Piggyback 114 171 Output: Urine 1700 Urethral (Marroquin) 1700 - Physical Exam Head: Positive for: Atraumatic, Normocephalic Pupils: Positive for: PERRL Extroacular Muscles: Positive for: Gaze Palsy (Rightward) Conjunctiva: Positive for: Normal Mouth: Positive for: Dry Neck: Positive for: Other (trach collar) Respiratory/Chest: Positive for: Good Air Exchange. Negative for: Respiratory Distress, Accessory Muscle Use, Wheezes, Rales, Tachypneic Cardiovascular: Positive for: Bradycardic, Other (left radial barely palpable, right radial palpable, bilateral dp/pt palable, femoral pulses strong.) Abdomen: Negative for: Tenderness, Distention Upper Extremity: Positive for: Normal Inspection, Other (unable to move right upper extremity, left upper extremity 2/5). Negative for: Edema, Normal ROM, Swelling, Erythema Lower Extremity: Positive for: Normal Inspection, Edema (trace), Other (able to lift bilateral LE against gravity, strength 3/5). Negative for: Normal ROM, Swelling Neurological: Positive for: Other (gait deferred, R hemiplegia) Skin: Positive for: Warm, Dry Psychiatric: Positive for: Alert, Oriented x 3, Other (awake) - Medications Active Medications: Active Medications Generic Name Dose Route Start Last Admin Trade Name Freq PRN Reason Stop Dose Admin Albuterol/Ipratropium 3 ml 08/25/17 18:15 Duoneb 3 Mg/0.5 Mg (3 Ml) Ud INH RQ6 PRN Shortness of Breath Aspirin 325 mg 08/27/17 06:00 Ecotrin PO DAILY SHANAE Aspirin 81 mg 08/27/17 09:00 Aspirin Chewable PO DAILY SHANAE Clopidogrel Bisulfate 75 mg 08/28/17 09:00 Plavix PO DAILY SHANAE Sodium Chloride 1,000 mls @ 100 mls/hr 08/26/17 00:00 08/26/17 22:56 Sodium Chloride 0.9% IV 08/29/17 23:59 100 mls/hr .Q10H SHANAE Administration Norepinephrine Bitartrate 4 mg 254 mls @ 9.52 mls/hr 08/26/17 17:45 08/27/17 03:05 / Dextrose IV 7.5 mcg/min .Q24H SHANAE 28.57 mls/hr Protocol Administration 2.5 MCG/MIN Norepinephrine Bitartrate 4 mg 254 mls @ 9.52 mls/hr 08/27/17 03:30 08/27/17 06:51 / Dextrose IV Not Given .Q24H [facility] Protocol 2.5 MCG/MIN Insulin Human Regular 1 units 08/25/17 22:00 08/27/17 07:10 Humulin R SC Not Given ACHS [facility] Protocol - Patient Studies Lab Studies: Lab Studies 08/27/17 08/27/17 08/27/17 Range/Units 06:11 04:20 04:20 WBC 11.0 H (4.8-10.8) K/uL RBC 5.76 (4.40-5.90) Mil/uL Hgb 14.0 (12.0-18.0) g/dL Hct 43.9 (35.0-51.0) % MCV 76.1 L (80.0-94.0) fl MCH 24.2 L (27.0-31.0) pg MCHC 31.8 L (33.0-37.0) g/dL RDW 14.7 H (11.5-14.5) % Plt Count 256 (130-400) K/uL Sodium 143 (132-148) mmol/l Potassium 3.7 (3.6-5.0) MMOL/L Chloride 106 (98-107) mmol/L Carbon Dioxide 25 (22-30) mmol/L Anion Gap 16 (10-20) BUN 17 (9-20) mg/dl Creatinine 0.8 (0.8-1.5) mg/dl Est GFR ( Amer) > 60 Est GFR (Non-Af Amer) > 60 POC Glucose (mg/dL) 101 (65-110) mg/dL Random Glucose 134 H (75-110) mg/dL Calcium 8.5 (8.4-10.2) mg/dL Total Bilirubin 1.5 H (0.2-1.3) mg/dl AST 71 H (17-59) U/L ALT 46 (21-72) U/L Alkaline Phosphatase 83 (38-126) U/L Total Protein 8.3 H (6.3-8.2) G/DL Albumin 3.3 L (3.5-5.0) g/dL Globulin 5.0 H (2.2-3.9) gm/dL Albumin/Globulin Ratio 0.7 L (1.0-2.1) 08/26/17 08/26/17 08/26/17 Range/Units 21:50 17:18 11:30 WBC (4.8-10.8) K/uL RBC (4.40-5.90) Mil/uL Hgb (12.0-18.0) g/dL Hct (35.0-51.0) % MCV (80.0-94.0) fl MCH (27.0-31.0) pg MCHC (33.0-37.0) g/dL RDW (11.5-14.5) % Plt Count (130-400) K/uL Sodium (132-148) mmol/l Potassium (3.6-5.0) MMOL/L Chloride (98-107) mmol/L Carbon Dioxide (22-30) mmol/L Anion Gap (10-20) BUN (9-20) mg/dl Creatinine (0.8-1.5) mg/dl Est GFR ( Amer) Est GFR (Non-Af Amer) POC Glucose (mg/dL) 121 H 89 92 (65-110) mg/dL Random Glucose (75-110) mg/dL Calcium (8.4-10.2) mg/dL Total Bilirubin (0.2-1.3) mg/dl AST (17-59) U/L ALT (21-72) U/L Alkaline Phosphatase (38-126) U/L Total Protein (6.3-8.2) G/DL Albumin (3.5-5.0) g/dL Globulin (2.2-3.9) gm/dL Albumin/Globulin Ratio (1.0-2.1) Laboratory Results - last 24 hr 08/26/17 08/26/17 08/26/17 11:30 17:18 21:50 WBC RBC Hgb Hct MCV MCH MCHC RDW Plt Count Sodium Potassium Chloride Carbon Dioxide Anion Gap BUN Creatinine Est GFR ( Amer) Est GFR (Non-Af Amer) POC Glucose (mg/dL) 92 89 121 H Random Glucose Calcium Total Bilirubin AST ALT Alkaline Phosphatase Total Protein Albumin Globulin Albumin/Globulin Ratio 08/27/17 08/27/17 08/27/17 04:20 04:20 06:11 WBC 11.0 H RBC 5.76 Hgb 14.0 Hct 43.9 MCV 76.1 L MCH 24.2 L MCHC 31.8 L RDW 14.7 H Plt Count 256 Sodium 143 Potassium 3.7 Chloride 106 Carbon Dioxide 25 Anion Gap 16 BUN 17 Creatinine 0.8 Est GFR ( Amer) > 60 Est GFR (Non-Af Amer) > 60 POC Glucose (mg/dL) 101 Random Glucose 134 H Calcium 8.5 Total Bilirubin 1.5 H AST 71 H ALT 46 Alkaline Phosphatase 83 Total Protein 8.3 H Albumin 3.3 L Globulin 5.0 H Albumin/Globulin Ratio 0.7 L Fingerstick Blood Sugar Results: 101 Review of Systems - Review of Systems All systems: reviewed and no additional remarkable complaints except (as per subjective) Critical Care Progress Note - Nutrition Nutrition: Nutrition Category Date Time Status Dysphagia/Modified Consistency Diet [DIET] Diets 08/27/17 Breakfast Active Assessment/Plan - Assessment and Plan (Free Text) Assessment: 71 y/o M admitted for acute left ischemic CVA. Plan: 1. 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 CAD now with Hypotension/Arrythmia 3. 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 Prophylaxis Left Acute Ischemic CVA with right sided facial involvement and right hemiplegia. -s/p clopidrogrel 300 mg given on 08/27/17 -TPA was given for 30 mins and stopped because patient was bleeding from Trachostomy site. -c/w aspirin 81 mg and plavix 75 mg PO -f/u Neuro status -f/u Brain MRI w/o contrast, Head and Neck MRA w/o contrast results -Neuro on consult. Appreciated recommendations. -F/u Head CT done on 08/26/17 showed acute nonhemorrhagic cortical infarction corresponding to branch vessels of the left MCA as well as smaller bland infarct watershed distribution left posterior parietal occipital region -PT/OT eval and treatment Hypotension -Large discrepancy between right and left arm BP noted. Right arm BP: 155/110, Left arm BP: 80s/50s -On IV vasopressor ( Norepinephrine) to maintain cerebral blood flow, will titrate to maintain SBP 120s-130s -Other management as per Cardiology for Bradycardia. No episode of recurrent bradycardia. -Echo done on 08/26/17 showed EF 35-40 %, LV systolic function mildly to moderately impaired. RV function normal. -Cardiology on consult. Appreciated recommendations -f/u BP NIIDM -controlled -in no medications at this time Diet -c/w pureed Prophylaxis -aspiration precautions -pressure ulcers precautions -SCDs for DVT prophylaxis (recent active bleeding) - Date & Time Date: 08/27/17 Time: 07:25 <Crow Viveros - Last Filed: 08/27/17 22:35> CCU Subjective - Physician Review Subjective (Free Text): Attestation: Patient seen and examined at the bedside with Resident Dr. Yu Martinez; and I agree with her outline of plans and management documented above as discussed on AM rounds reflecting my review of all applicable clinical data, and participation in the care of the patient throughout the day in ICU; August. Awaiting on results of repeat Brain imaging. Overall neuromental status does not appear worse today, and vasoactive drugs are almost weaned off.
[2017-08-27] MEDS: Sodium Chloride 0.9% 1,000 ML IV SCH ×2 (10:27→20:45)
--- NOTE | 2017-08-27 14:12 | CP.PCM.PN ---
Subjective - Date & Time of Evaluation Date of Evaluation: 08/27/17 Time of Evaluation: 08:00 - Subjective Subjective: Patient is seen and examined at bedside with Dr. Coburn. Patient does not appear in any acute distress. Is able to communicate with nodding his head. No overnight events reported. Patient has adequate urine output. Patient is able to move left upper and lower extremity, however is unable to move right upper and lower extremity. Objective - Vital Signs/Intake and Output Vital Signs (last 24 hours): Temp Pulse Resp BP Pulse Ox 99.6 F 101 H 20 94/62 L 100 08/27/17 08:00 08/27/17 11:10 08/27/17 11:10 08/27/17 11:10 08/27/17 11:10 Intake and Output: 08/27/17 08/27/17 06:59 18:59 Intake Total 1527 480 Output Total 1700 Balance -173 480 - Medications Medications: Current Medications Albuterol/Ipratropium (Duoneb 3 Mg/0.5 Mg (3 Ml) Ud) 3 ml INH RQ6 PRN PRN Reason: Shortness of Breath Aspirin (Aspirin Chewable) 81 mg PO DAILY SHANAE Last Admin: 08/27/17 10:19 Dose: 81 mg Clopidogrel Bisulfate (Plavix) 75 mg PO DAILY SHANAE Sodium Chloride (Sodium Chloride 0.9%) 1,000 mls @ 100 mls/hr IV .Q10H SHANAE Stop: 08/29/17 23:59 Last Admin: 08/27/17 10:27 Dose: 100 mls/hr Norepinephrine Bitartrate 4 mg (/ Dextrose) 254 mls @ 9.52 mls/hr IV .Q24H SHANAE ; 2.5 MCG/MIN PRN Reason: Protocol Last Titration: 08/27/17 11:20 Dose: 17.5 mcg/min, 66.67 mls/hr Norepinephrine Bitartrate 4 mg (/ Dextrose) 254 mls @ 9.52 mls/hr IV .Q24H SHANAE ; 2.5 MCG/MIN PRN Reason: Protocol Last Admin: 08/27/17 06:51 Dose: Not Given Insulin Human Regular (Humulin R) 1 units SC ACHS SHANAE PRN Reason: Protocol Last Admin: 08/27/17 12:00 Dose: 1 units - Labs Labs: 08/27/17 04:20 08/27/17 04:20 PT 14.6 Seconds (9.8-13.1) H 08/25/17 14:00 INR 1.3 (0.9-1.2) H 08/25/17 14:00 APTT 24.1 Seconds (25.6-37.1) L 08/25/17 14:00 - Constitutional Appears: Chronically Ill - Head Exam Head Exam: ATRAUMATIC - Neck Exam Additional comments: trach collar - Respiratory Exam Respiratory Exam: absent: Accessory Muscle Use, Rales, Wheezes - Cardiovascular Exam Cardiovascular Exam: +S1, +S2 - GI/Abdominal Exam GI & Abdominal Exam: Soft. absent: Tenderness - Neurological Exam Neurological Exam: Awake Additional comments: right sided hemiplegia Assessment and Plan - Assessment and Plan (Free Text) Assessment: Assessment: 71 yr old M admitted for acute CVA, s/p TPA administered in emergency department. NIH score 16, patient is noverbal at baseline s/p laryngectomy for larynx cancer. 1) Left acute ischemic CVA w/ right sided facial involvement and right hemiplegia -continue management in ICU - c/w aspirin and plavix. TPA was stopped because of bleeding from trach site - Head CT done on 08/26/17 showed acute nonhemorrhagic cortical infarction corresponding to branch vessels of the left MCA as well as smaller bland infarct watershed distribution left posterior parietal occipital region - Neurology consult appreciated - PT/OT 2) Hypotension - On vasopressor - EF shows 35-40% EF - Cardio consult appreciated. 3) DM 2 - controlled - no meds 4) DVT prophylaxis - SCD
--- NOTE | 2017-08-27 20:52 | MRI ---
EXAM: MR Head Without Intravenous Contrast EXAM DATE/TIME: 08/27/2017 8:42 AM CLINICAL HISTORY: 71 years old, male; Signs and symptoms; Other: Ischemic stroke TECHNIQUE: Magnetic resonance images of the head/brain without intravenous contrast in multiple planes. COMPARISON: Prior head CT of 2017-08-26 FINDINGS: BRAIN: Multiple areas of restricted diffusion, compatible with multiple acute infarcts, are seen in the left cerebral hemisphere, involving the left frontal, parietal, and temporal lobes. The largest area of acute infarction involves the left parietal and posterior temporal lobes, and measures 8 cm maximally. There are multiple additional, scattered, smaller acute infarcts, in the left frontal and temporal lobes, and an additional tiny acute infarct in the left mot[place] radi[place]. Scattered small foci of susceptibility artifact, compatible with associated hemorrhage, are seen in the left frontal lobe and parietal lobes, the largest of which measures 1.2 cm and is located in the left frontal lobe posteriorly. Findings compatible with multiple old/chronic lacunar infarcts in the basal ganglia bilaterally and in the [place]. Findings compatible with small foci of chronic hemorrhage in the right basal ganglia. Scattered areas of increased T2 signal in the white matter bilaterally, nonspecific in appearance, but most likely representing chronic small vessel ischemic changes. No other significant abnormality identified. No acute extra-axial fluid collections visualized. No evidence of midline shift, ventricular effacement, basilar cistern effacement, or other significant intracranial mass effect. VENTRICLES: See above. BONES/JOINTS: No acute bony abnormality identified. SINUSES: No evidence of sinus fluid levels. MASTOID AIR CELLS: Mastoid air cells appear clear. ORBITS: No acute intraorbital abnormality seen. IMPRESSION: - Multiple acute infarcts in the left cerebral hemisphere, involving the left middle cerebral artery territory, located in the left parietal, frontal and temporal lobes. The largest area of infarction measures 8 cm, and there are multiple additional smaller acute infarcts seen. There are scattered small foci of associated acute hemorrhage in the left frontal and parietal lobes. - See above for remaining findings.
--- NOTE | 2017-08-27 22:19 | PN ---
DATE: SUBJECTIVE: The patient is still nonverbal. He has right facial drooping and right arm and leg paralysis. No reported ventricular arrhythmia. The patient was noted to be hypotensive as the blood pressure was taken from the left arm and required Levophed infusion; however, when the nurse told me that the right arm had normal blood pressure, I discussed with her the finding of the head and neck CT angio of left subclavian artery thrombosis and the fact that blood pressure should not be taken from the left arm at all. PHYSICAL EXAMINATION: VITAL SIGNS: Blood pressure 114/76, heart rate 102, temperature 99.6, and respirations 21. HEENT: Right facial drooping. CHEST: Clear. HEART: S1 and S2 regular. EXTREMITIES: No pedal edema. LABORATORY DATA: Hemoglobin and hematocrit 14 and 43.9, white count 11, and platelet count 156,000. SMA-7 today is within normal limits except for a glucose of 134. Echocardiograph study revealed mild concentric LVH. Septum had rocking motion possibly due to IVCD. Apical one-third of septum, apex and apical half of the inferior wall were hypokinetic. Ejection fraction in the range of 35% to 40%. ASSESSMENT: 1. Acute cerebrovascular accident. 2. Left subclavian artery thrombosis. 3. Periods of sinus bradycardia. 4. Significant depressed ejection fraction with apical hypokinesis. RECOMMENDATIONS: Continue aspirin 81 mg once a day. May discontinue Levophed. Continue Plavix 75 mg once a day. Consider therapeutic anticoagulation as indicated from the neurological point of view especially in the presence of significant apical hypokinesis, recent cerebrovascular accident, and left subclavian artery thrombosis. Jose D Luis MD
[2017-08-28 06:06] LABS: INR 1.4 (0.9-1.2); PROTHROMBIN TIME 15.7 Seconds (9.8-13.1)
[2017-08-28 06:08] LABS: BASO % 0.5 % (0.0-2.0); EOS # 0.1 K/uL (0.0-0.7); EOS % 1.5 % (0.0-4.0); HEMOGLOBIN 13.2 g/dL (12.0-18.0); LYMPH # 2.6 K/uL (1.0-4.3); LYMPH % 27.8 % (20.0-40.0); MEAN CELL VOLUME 75.1 fl (80.0-94.0); MEAN CORPUSCULAR HEMOGLOBIN 24.8 pg (27.0-31.0); MEAN CORPUSCULAR HGB CONC 33.1 g/dL (33.0-37.0); MEAN PLATELET VOLUME 8.9 fl (7.2-11.7); MONO # 0.9 K/uL (0.0-0.8); MONO % 9.9 % (0.0-10.0); NEUT # 5.5 K/uL (1.8-7.0); NEUT % 60.3 % (50.0-75.0); NRBC % 0.4 % (0.0-0.0); RBC 5.33 Mil/uL (4.40-5.90); RED CELL DISTRIBUTION WIDTH 14.3 % (11.5-14.5); WHITE BLOOD COUNT 9.2 K/uL (4.8-10.8)
[2017-08-28 06:16] LABS: BLOOD UREA NITROGEN 21 mg/dl (9-20); CALCIUM 7.9 mg/dL (8.4-10.2); GFR AFRICAN-AMERICAN > 60; GFR NON-AFRICAN AMERICAN > 60
[2017-08-28] MEDS: Insulin Regular 100 units/ml SC SCH ×4 (07:30→22:00)
--- NOTE | 2017-08-28 07:58 | CP.CCUPN ---
<NiravsantosharanCarolyn - Last Filed: 08/28/17 15:44> CCU Subjective - Physician Review Subjective (Free Text): 08/28/17 09:49 Patient was seen and examined at bedside with retail training manager Patient awake, and al. No respiratory distress noted at the time of evaluation. Patient shook her head to No when asked for chest pain, SOB, pain or other symptoms. No evidence of bleeding this morning. Patient was titrated off Levophed yesterday last night at 23:00 because BP parameters were not met to c/ w Levophed. Today patient was asked multiple times and variants about life support wishes and patient DOES NOT WANT CPR, INTUBATION, being on a VENTILATOR, DIALYSIS if renal failure, NG TUBE FOR FEEDING if unable to swallow or eat. Patient agrees with comfortable measures at the end of life. Patient confirmed many times his life support wishes with Dr. Viveros, Nurse Izabella, 1-1 observation staff and myself present at bedside. As per patient wishes, he was made DNR/DNI today. We asked about family, and patient agrees that he has 2 younger brothers. Will try to get his brothers names and information. VS on monitor: BP: 122/70 , HR: 98, RR:20, 100 % oxygen saturation Following commands. Patient was able to slightly raise his LUE and LLE, but no moving RUE and RLL. Still has a right facial drop. Patient is not verbal. Still Large discrepancy between right and left arm BP, Right arm showing higher BP levels: 122/70, and left arm showing lower levels less than : 60s/40s. Radial pulse barely palpable. Labs today reviewed. Noted, potassium slightly decreased, 3.4. He had Brain MRI yesterday. 08/28/17 10:33 08/28/17 10:37 CCU Objective - Vital Signs / Intake & Output Vital Signs (Last 4 hours): Vital Signs Temp Pulse Resp BP Pulse Ox 08/28/17 07:50 98.3 F 95 H 121/70 100 08/28/17 06:00 104 H 21 126/87 99 08/28/17 05:00 97 H 23 112/60 100 08/28/17 04:00 98.7 F 91 H 17 125/72 100 Intake and Output (Last 8hrs): Intake & Output 02/08/1308/28/17 08/28/17 22:59 06:59 14:59 Intake Total 678 800 Output Total 500 200 Balance 178 600 Intake: IV 648 800 Intake, Piggyback 30 Output: Urine 500 200 Urethral (Marroquin) 500 200 - Physical Exam Head: Positive for: Atraumatic, Normocephalic Pupils: Positive for: PERRL Extroacular Muscles: Positive for: Gaze Palsy (Rightward) Conjunctiva: Positive for: Normal Mouth: Positive for: Dry Neck: Positive for: Other (trach collar) Respiratory/Chest: Positive for: Good Air Exchange. Negative for: Respiratory Distress, Accessory Muscle Use, Wheezes, Rales, Tachypneic Cardiovascular: Positive for: Normal S1, S2, Other (left radial barely palpable , right radial palpable, bilateral dp/pt decreased, femoral pulses strong.) Abdomen: Negative for: Tenderness, Distention, Peritoneal Signs Upper Extremity: Positive for: Normal Inspection, Other (unable to move right upper extremity, left upper extremity 2/5). Negative for: Edema, Normal ROM, Swelling, Erythema Lower Extremity: Positive for: Normal Inspection, Other (able to lift bilateral LE against gravity, strength 3/5, unable to lift RLE and RLE). Negative for: Edema, CALF TENDERNESS, Normal ROM, Swelling Neurological: Positive for: Other (gait deferred, R hemiplegia) Skin: Positive for: Warm, Dry Psychiatric: Positive for: Alert, Oriented x 3, Other (awake). Negative for: Agitated - Medications Active Medications: Active Medications Generic Name Dose Route Start Last Admin Trade Name Freq PRN Reason Stop Dose Admin Albuterol/Ipratropium 3 ml 08/25/17 18:15 Duoneb 3 Mg/0.5 Mg (3 Ml) Ud INH RQ6 PRN Shortness of Breath Aspirin 81 mg 08/27/17 09:00 08/27/17 10:19 Aspirin Chewable PO 81 mg DAILY SHANAE Administration Clopidogrel Bisulfate 75 mg 08/28/17 09:00 Plavix PO DAILY SHANAE Sodium Chloride 1,000 mls @ 100 mls/hr 08/26/17 00:00 08/27/17 20:45 Sodium Chloride 0.9% IV 08/29/17 23:59 100 mls/hr .Q10H SHANAE Administration Potassium Chloride 50 mls @ 50 mls/hr 08/28/17 07:00 Potassium Cl 10meq/50ml Sterile Water IVPB 08/28/17 09:59 Q1 SHANAE Insulin Human Regular 1 units 08/25/17 22:00 08/27/17 22:00 Humulin R SC Not Given ACHS [facility] Protocol - Patient Studies Lab Studies: Microbiology Studies 08/26/17 07:21 MRSA Culture (Admit) - Final Nose MRSA NOT DETECTED Lab Studies 08/28/17 08/28/17 08/28/17 Range/Units 04:30 04:30 04:30 WBC 9.2 (4.8-10.8) K/uL RBC 5.33 (4.40-5.90) Mil/uL Hgb 13.2 (12.0-18.0) g/dL Hct 40.0 (35.0-51.0) % MCV 75.1 L (80.0-94.0) fl MCH 24.8 L (27.0-31.0) pg MCHC 33.1 (33.0-37.0) g/dL RDW 14.3 (11.5-14.5) % Plt Count 217 (130-400) K/uL MPV 8.9 (7.2-11.7) fl Neut % (Auto) 60.3 (50.0-75.0) % Lymph % (Auto) 27.8 (20.0-40.0) % [place] % (Auto) 9.9 (0.0-10.0) % Eos % (Auto) 1.5 (0.0-4.0) % Baso % (Auto) 0.5 (0.0-2.0) % Neut # (Auto) 5.5 (1.8-7.0) K/uL Lymph # (Auto) 2.6 (1.0-4.3) K/uL [place] # (Auto) 0.9 H (0.0-0.8) K/uL Eos # (Auto) 0.1 (0.0-0.7) K/uL Baso # (Auto) 0.0 (0.0-0.2) K/uL PT 15.7 H (9.8-13.1) Seconds INR 1.4 H (0.9-1.2) APTT 30.0 D (25.6-37.1) Seconds Sodium 140 (132-148) mmol/l Potassium 3.4 L (3.6-5.0) MMOL/L Chloride 108 H (98-107) mmol/L Carbon Dioxide 24 (22-30) mmol/L Anion Gap 11 (10-20) BUN 21 H (9-20) mg/dl Creatinine 0.9 (0.8-1.5) mg/dl Est GFR ( Amer) > 60 Est GFR (Non-Af Amer) > 60 POC Glucose (mg/dL) (65-110) mg/dL Random Glucose 101 (75-110) mg/dL Hemoglobin A1c (4.2-6.5) % Calcium 7.9 L (8.4-10.2) mg/dL 08/27/17 08/27/17 08/27/17 Range/Units 21:26 18:21 13:24 WBC (4.8-10.8) K/uL RBC (4.40-5.90) Mil/uL Hgb (12.0-18.0) g/dL Hct (35.0-51.0) % MCV (80.0-94.0) fl MCH (27.0-31.0) pg MCHC (33.0-37.0) g/dL RDW (11.5-14.5) % Plt Count (130-400) K/uL MPV (7.2-11.7) fl Neut % (Auto) (50.0-75.0) % Lymph % (Auto) (20.0-40.0) % [place] % (Auto) (0.0-10.0) % Eos % (Auto) (0.0-4.0) % Baso % (Auto) (0.0-2.0) % Neut # (Auto) (1.8-7.0) K/uL Lymph # (Auto) (1.0-4.3) K/uL [place] # (Auto) (0.0-0.8) K/uL Eos # (Auto) (0.0-0.7) K/uL Baso # (Auto) (0.0-0.2) K/uL PT (9.8-13.1) Seconds INR (0.9-1.2) APTT (25.6-37.1) Seconds Sodium (132-148) mmol/l Potassium (3.6-5.0) MMOL/L Chloride (98-107) mmol/L Carbon Dioxide (22-30) mmol/L Anion Gap (10-20) BUN (9-20) mg/dl Creatinine (0.8-1.5) mg/dl Est GFR ( Amer) Est GFR (Non-Af Amer) POC Glucose (mg/dL) 161 H 168 H 187 H (65-110) mg/dL Random Glucose (75-110) mg/dL Hemoglobin A1c (4.2-6.5) % Calcium (8.4-10.2) mg/dL 08/27/17 08/27/17 Range/Units 06:11 04:20 WBC (4.8-10.8) K/uL RBC (4.40-5.90) Mil/uL Hgb (12.0-18.0) g/dL Hct (35.0-51.0) % MCV (80.0-94.0) fl MCH (27.0-31.0) pg MCHC (33.0-37.0) g/dL RDW (11.5-14.5) % Plt Count (130-400) K/uL MPV (7.2-11.7) fl Neut % (Auto) (50.0-75.0) % Lymph % (Auto) (20.0-40.0) % [place] % (Auto) (0.0-10.0) % Eos % (Auto) (0.0-4.0) % Baso % (Auto) (0.0-2.0) % Neut # (Auto) (1.8-7.0) K/uL Lymph # (Auto) (1.0-4.3) K/uL [place] # (Auto) (0.0-0.8) K/uL Eos # (Auto) (0.0-0.7) K/uL Baso # (Auto) (0.0-0.2) K/uL PT (9.8-13.1) Seconds INR (0.9-1.2) APTT (25.6-37.1) Seconds Sodium (132-148) mmol/l Potassium (3.6-5.0) MMOL/L Chloride (98-107) mmol/L Carbon Dioxide (22-30) mmol/L Anion Gap (10-20) BUN (9-20) mg/dl Creatinine (0.8-1.5) mg/dl Est GFR ( Amer) Est GFR (Non-Af Amer) POC Glucose (mg/dL) 101 (65-110) mg/dL Random Glucose (75-110) mg/dL Hemoglobin A1c 6.7 H (4.2-6.5) % Calcium (8.4-10.2) mg/dL Laboratory Results - last 24 hr 08/27/17 08/27/17 08/27/17 04:20 06:11 13:24 WBC RBC Hgb Hct MCV MCH MCHC RDW Plt Count MPV Neut % (Auto) Lymph % (Auto) [place] % (Auto) Eos % (Auto) Baso % (Auto) Neut # (Auto) Lymph # (Auto) [place] # (Auto) Eos # (Auto) Baso # (Auto) PT INR APTT Sodium Potassium Chloride Carbon Dioxide Anion Gap BUN Creatinine Est GFR ( Amer) Est GFR (Non-Af Amer) POC Glucose (mg/dL) 101 187 H Random Glucose Hemoglobin A1c 6.7 H Calcium 08/27/17 08/27/17 08/28/17 18:21 21:26 04:30 WBC 9.2 RBC 5.33 Hgb 13.2 Hct 40.0 MCV 75.1 L MCH 24.8 L MCHC 33.1 RDW 14.3 Plt Count 217 MPV 8.9 Neut % (Auto) 60.3 Lymph % (Auto) 27.8 [place] % (Auto) 9.9 Eos % (Auto) 1.5 Baso % (Auto) 0.5 Neut # (Auto) 5.5 Lymph # (Auto) 2.6 [place] # (Auto) 0.9 H Eos # (Auto) 0.1 Baso # (Auto) 0.0 PT INR APTT Sodium Potassium Chloride Carbon Dioxide Anion Gap BUN Creatinine Est GFR ( Amer) Est GFR (Non-Af Amer) POC Glucose (mg/dL) 168 H 161 H Random Glucose Hemoglobin A1c Calcium 08/28/17 08/28/17 04:30 04:30 WBC RBC Hgb Hct MCV MCH MCHC RDW Plt Count MPV Neut % (Auto) Lymph % (Auto) [place] % (Auto) Eos % (Auto) Baso % (Auto) Neut # (Auto) Lymph # (Auto) [place] # (Auto) Eos # (Auto) Baso # (Auto) PT 15.7 H INR 1.4 H APTT 30.0 D Sodium 140 Potassium 3.4 L Chloride 108 H Carbon Dioxide 24 Anion Gap 11 BUN 21 H Creatinine 0.9 Est GFR ( Amer) > 60 Est GFR (Non-Af Amer) > 60 POC Glucose (mg/dL) Random Glucose 101 Hemoglobin A1c Calcium 7.9 L Fingerstick Blood Sugar Results: 161 Critical Care Progress Note - Nutrition Nutrition: Nutrition Category Date Time Status Dysphagia/Modified Consistency Diet [DIET] Diets 08/27/17 Breakfast Active Assessment/Plan - Assessment and Plan (Free Text) Assessment: 71 y/o M admitted with Left CVA, with multiple acute infarcts in left cerebral hemisphere, and small foci of acute hemorrhage in left frontal and parietal lobes. Plan: 1.Acute Ischemic CVA, right sided facial and upper/lower ext involvement 2. CAD , with improved Hypotension 3. 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 Prophylaxis Left Acute Ischemic CVA with right sided facial involvement and right hemiplegia. -c/w aspirin 81 mg as per neuro -Held plavix 75 mg for now as per Neuro due to new findings on Brain MRI -f/u Neuro status -Brain MRI w/o contrast done on 08/27/17 reported multiple acute infarcts in the left cerebral hemisphere involving MCA territory, and small foci of associated acute hemorrhage in the left frontal and parietal lobes. -Neuro is aware of Brain MRI results. As per Neuro patient has poor prognosis and recommendations for hospice given. No other interventions from Neuro stand point at this time. 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 Patient is not a good candidate for anticoagulant therapy because acute hemorrhagic stroke noted in Brain MRI. -c/w PT/OT treatment -c/w speech therapy Hypotension -Large discrepancy between right and left arm BP noted. Right arm BP: 122/70, Left arm BP: less than 60s/40s -Titrated off IV vasopressor ( Norepinephrine) yesterday at 23:00 -one episode of non susta -Other management as per Cardiology. No episode of recurrent bradycardia. -Echo done on 08/26/17 showed EF 35-40 %, LV systolic function mildly to moderately impaired. RV function normal. -Cardiology ib the case. Dr. Luis. Appreciated recs. -f/u BP and HR Hypokalemia -mild, K+ 3.4 -replace potassium -f/u potassium NIIDM -controlled -in no medications at this time Diet -c/w pureed Prophylaxis -aspiration precautions -pressure ulcers precautions -SCDs for DVT prophylaxis (recent active bleeding and acute hemorrhagic stroke on Brain MRI) - Date & Time Date: 08/28/17 Time: 09:15 <FeliceCrow - Last Filed: 08/28/17 16:43> CCU Subjective - Physician Review Subjective (Free Text): Attestation: Patient seen and examined at the bedside with Resident Dr. Yu Martinez; and I agree with her outline of plans and management documented above as discussed on AM rounds reflecting my review of all applicable clinical data, and participation in the care of the patient throughout the day in ICU; August. CCU Objective - Medications Active Medications: Active Medications Generic Name Dose Route Start Last Admin Trade Name Freq PRN Reason Stop Dose Admin Albuterol/Ipratropium 3 ml 08/25/17 18:15 Duoneb 3 Mg/0.5 Mg (3 Ml) Ud INH RQ6 PRN Shortness of Breath Aspirin 81 mg 08/27/17 09:00 08/28/17 09:25 Aspirin Chewable PO 81 mg DAILY SHANAE Administration Sodium Chloride 1,000 mls @ 100 mls/hr 08/26/17 00:00 08/27/17 20:45 Sodium Chloride 0.9% IV 08/29/17 23:59 100 mls/hr .Q10H SHANAE Administration Insulin Human Regular 1 units 08/25/17 22:00 08/28/17 16:40 Humulin R SC Not Given ACHS SHANAE Protocol - Patient Studies Lab Studies: Microbiology Studies 08/26/17 07:21 MRSA Culture (Admit) - Final Nose MRSA NOT DETECTED Lab Studies 08/28/17 08/28/17 08/28/17 Range/Units 11:02 05:55 04:30 WBC (4.8-10.8) K/uL RBC (4.40-5.90) Mil/uL Hgb (12.0-18.0) g/dL Hct (35.0-51.0) % MCV (80.0-94.0) fl MCH (27.0-31.0) pg MCHC (33.0-37.0) g/dL RDW (11.5-14.5) % Plt Count (130-400) K/uL MPV (7.2-11.7) fl Neut % (Auto) (50.0-75.0) % Lymph % (Auto) (20.0-40.0) % [place] % (Auto) (0.0-10.0) % Eos % (Auto) (0.0-4.0) % Baso % (Auto) (0.0-2.0) % Neut # (Auto) (1.8-7.0) K/uL Lymph # (Auto) (1.0-4.3) K/uL [place] # (Auto) (0.0-0.8) K/uL Eos # (Auto) (0.0-0.7) K/uL Baso # (Auto) (0.0-0.2) K/uL PT (9.8-13.1) Seconds INR (0.9-1.2) APTT (25.6-37.1) Seconds Sodium 140 (132-148) mmol/l Potassium 3.4 L (3.6-5.0) MMOL/L Chloride 108 H (98-107) mmol/L Carbon Dioxide 24 (22-30) mmol/L Anion Gap 11 (10-20) BUN 21 H (9-20) mg/dl Creatinine 0.9 (0.8-1.5) mg/dl Est GFR ( Amer) > 60 Est GFR (Non-Af Amer) > 60 POC Glucose (mg/dL) 104 88 (65-110) mg/dL Random Glucose 101 (75-110) mg/dL Calcium 7.9 L (8.4-10.2) mg/dL 08/28/17 08/28/17 08/27/17 Range/Units 04:30 04:30 21:26 WBC 9.2 (4.8-10.8) K/uL RBC 5.33 (4.40-5.90) Mil/uL Hgb 13.2 (12.0-18.0) g/dL Hct 40.0 (35.0-51.0) % MCV 75.1 L (80.0-94.0) fl MCH 24.8 L (27.0-31.0) pg MCHC 33.1 (33.0-37.0) g/dL RDW 14.3 (11.5-14.5) % Plt Count 217 (130-400) K/uL MPV 8.9 (7.2-11.7) fl Neut % (Auto) 60.3 (50.0-75.0) % Lymph % (Auto) 27.8 (20.0-40.0) % [place] % (Auto) 9.9 (0.0-10.0) % Eos % (Auto) 1.5 (0.0-4.0) % Baso % (Auto) 0.5 (0.0-2.0) % Neut # (Auto) 5.5 (1.8-7.0) K/uL Lymph # (Auto) 2.6 (1.0-4.3) K/uL [place] # (Auto) 0.9 H (0.0-0.8) K/uL Eos # (Auto) 0.1 (0.0-0.7) K/uL Baso # (Auto) 0.0 (0.0-0.2) K/uL PT 15.7 H (9.8-13.1) Seconds INR 1.4 H (0.9-1.2) APTT 30.0 D (25.6-37.1) Seconds Sodium (132-148) mmol/l Potassium (3.6-5.0) MMOL/L Chloride (98-107) mmol/L Carbon Dioxide (22-30) mmol/L Anion Gap (10-20) BUN (9-20) mg/dl Creatinine (0.8-1.5) mg/dl Est GFR ( Amer) Est GFR (Non-Af Amer) POC Glucose (mg/dL) 161 H (65-110) mg/dL Random Glucose (75-110) mg/dL Calcium (8.4-10.2) mg/dL 08/27/17 08/27/17 Range/Units 18:21 13:24 WBC (4.8-10.8) K/uL RBC (4.40-5.90) Mil/uL Hgb (12.0-18.0) g/dL Hct (35.0-51.0) % MCV (80.0-94.0) fl MCH (27.0-31.0) pg MCHC (33.0-37.0) g/dL RDW (11.5-14.5) % Plt Count (130-400) K/uL MPV (7.2-11.7) fl Neut % (Auto) (50.0-75.0) % Lymph % (Auto) (20.0-40.0) % [place] % (Auto) (0.0-10.0) % Eos % (Auto) (0.0-4.0) % Baso % (Auto) (0.0-2.0) % Neut # (Auto) (1.8-7.0) K/uL Lymph # (Auto) (1.0-4.3) K/uL [place] # (Auto) (0.0-0.8) K/uL Eos # (Auto) (0.0-0.7) K/uL Baso # (Auto) (0.0-0.2) K/uL PT (9.8-13.1) Seconds INR (0.9-1.2) APTT (25.6-37.1) Seconds Sodium (132-148) mmol/l Potassium (3.6-5.0) MMOL/L Chloride (98-107) mmol/L Carbon Dioxide (22-30) mmol/L Anion Gap (10-20) BUN (9-20) mg/dl Creatinine (0.8-1.5) mg/dl Est GFR ( Amer) Est GFR (Non-Af Amer) POC Glucose (mg/dL) 168 H 187 H (65-110) mg/dL Random Glucose (75-110) mg/dL Calcium (8.4-10.2) mg/dL Laboratory Results - last 24 hr 08/27/17 08/27/17 08/27/17 13:24 18:21 21:26 WBC RBC Hgb Hct MCV MCH MCHC RDW Plt Count MPV Neut % (Auto) Lymph % (Auto) [place] % (Auto) Eos % (Auto) Baso % (Auto) Neut # (Auto) Lymph # (Auto) [place] # (Auto) Eos # (Auto) Baso # (Auto) PT INR APTT Sodium Potassium Chloride Carbon Dioxide Anion Gap BUN Creatinine Est GFR ( Amer) Est GFR (Non-Af Amer) POC Glucose (mg/dL) 187 H 168 H 161 H Random Glucose Calcium 08/28/17 08/28/17 08/28/17 04:30 04:30 04:30 WBC 9.2 RBC 5.33 Hgb 13.2 Hct 40.0 MCV 75.1 L MCH 24.8 L MCHC 33.1 RDW 14.3 Plt Count 217 MPV 8.9 Neut % (Auto) 60.3 Lymph % (Auto) 27.8 [place] % (Auto) 9.9 Eos % (Auto) 1.5 Baso % (Auto) 0.5 Neut # (Auto) 5.5 Lymph # (Auto) 2.6 [place] # (Auto) 0.9 H Eos # (Auto) 0.1 Baso # (Auto) 0.0 PT 15.7 H INR 1.4 H APTT 30.0 D Sodium 140 Potassium 3.4 L Chloride 108 H Carbon Dioxide 24 Anion Gap 11 BUN 21 H Creatinine 0.9 Est GFR ( Amer) > 60 Est GFR (Non-Af Amer) > 60 POC Glucose (mg/dL) Random Glucose 101 Calcium 7.9 L 08/28/17 08/28/17 05:55 11:02 WBC RBC Hgb Hct MCV MCH MCHC RDW Plt Count MPV Neut % (Auto) Lymph % (Auto) [place] % (Auto) Eos % (Auto) Baso % (Auto) Neut # (Auto) Lymph # (Auto) [place] # (Auto) Eos # (Auto) Baso # (Auto) PT INR APTT Sodium Potassium Chloride Carbon Dioxide Anion Gap BUN Creatinine Est GFR ( Amer) Est GFR (Non-Af Amer) POC Glucose (mg/dL) 88 104 Random Glucose Calcium
[2017-08-28] MEDS: Potassium CL 10 MEQ/50 ML 50 ML IVPB SCH ×3 (08:04→10:23)
--- NOTE | 2017-08-28 10:28 | CP.PCM.PN ---
Subjective - Date & Time of Evaluation Date of Evaluation: 08/28/17 Time of Evaluation: 10:22 - Subjective Subjective: Mr. Howard was seen and examined at the bedside in ICU. He is alert oriented, but utilizes non verbal cues for communication. He has trach connected to a humified oxygen. He is tolerating PO intake with assistance. He is able to follow commands such as field accommodation and moving his upper and lower extremities. He remains with right side facial palsy ang right arm flaccid. He is able to minimally physician extender his right lower extremity as response to pain stimuli. He remains on 1:1 sitter for patient safety. There was a 5 beats of non -sustained V-Tach noted this morning. MRI of the brain showed multiple acute infacts i the left cerebral hemisphere involving the left middle cerebral artery territory, located in the left parietal, frontal and temporal lobes. The largest area of infarction measures 8 cm and there are multiple additional smaller acute infarcts seen. There are scattered small foci of associated acute hemorrhage in the left frontal and parietal lobes. Objective - Vital Signs/Intake and Output Vital Signs (last 24 hours): Temp Pulse Resp BP Pulse Ox 98.3 F 95 H 21 121/70 100 08/28/17 07:50 08/28/17 07:50 08/28/17 06:00 08/28/17 07:50 08/28/17 07:50 Intake and Output: 08/28/17 08/28/17 06:59 18:59 Intake Total 1130 100 Output Total 200 15 Balance 930 85 - Medications Medications: Current Medications Albuterol/Ipratropium (Duoneb 3 Mg/0.5 Mg (3 Ml) Ud) 3 ml INH RQ6 PRN PRN Reason: Shortness of Breath Aspirin (Aspirin Chewable) 81 mg PO DAILY [facility] Last Admin: 08/28/17 09:25 Dose: 81 mg Clopidogrel Bisulfate (Plavix) 75 mg PO DAILY [facility] Last Admin: 08/28/17 09:25 Dose: 75 mg Sodium Chloride (Sodium Chloride 0.9%) 1,000 mls @ 100 mls/hr IV .Q10H [facility] Stop: 08/29/17 23:59 Last Admin: 08/27/17 20:45 Dose: 100 mls/hr Insulin Human Regular (Humulin R) 1 units SC ACHS [facility] PRN Reason: Protocol Last Admin: 08/27/17 22:00 Dose: Not Given - Labs Labs: 08/28/17 04:30 08/28/17 04:30 PT 15.7 Seconds (9.8-13.1) H 08/28/17 04:30 INR 1.4 (0.9-1.2) H 08/28/17 04:30 APTT 30.0 Seconds (25.6-37.1) D 08/28/17 04:30 - Constitutional Appears: No Acute Distress - Head Exam Head Exam: NORMAL INSPECTION - Neurological Exam Neurological Exam: Alert, Awake Neuro motor strength exam: Left Upper Extremity: 5, Right Upper Extremity: 0, Left Lower Extremity: 4, Right Lower Extremity: 2/1 Additional comments: Neurological unchanged from previous examination. Assessment and Plan (1) Acute ischemic stroke Assessment & Plan: Case discussed with Dr. Arauz, continue all current medical, physical, occupational, and speech therapies. Recommend hospice care. With ethe new findings of patient converting to hemorrhagic, will hold plavix for now. Status: Acute
--- NOTE | 2017-08-28 14:34 | PN ---
DATE: SUBJECTIVE: The patient is awake. He is hypotensive. He requested [id number] order. Yesterday's brain MRI revealed multiple acute infarcts in the left cerebral hemisphere involving left middle cerebral artery territory located in the left parietal, frontal, and temporal lobes. The large cerebral infarct measures 8 cm, there are multiple smaller acute infarcts seen. There are scattered small foci of associated acute hemorrhage in the frontal and parietal lobes. PHYSICAL EXAMINATION: VITAL SIGNS: Blood pressure 111/57, heart rate 109, temperature 98.3, respirations 23. HEENT: Loss of right nasolabial fold. CHEST: Bilateral rhonchi. HEART: S1 and S2 regular. EXTREMITIES: No edema. LABORATORY DATA: Hemoglobin and hematocrit 15.1 and 40, platelet count and white count are within normal limits. Today's potassium is 3.4, calcium is 7.9, both are below normal. ASSESSMENT: 1. Multiple left hemispheric acute infarcts with small foci of acute hemorrhages. 2. History of laryngeal carcinoma. 3. Hypotension. 4. Decreased left ventricular systolic function with apical hypokinesis, the left ventricle is most likely the source for the patient's recent acute embolic events. RECOMMENDATIONS: Continue aspirin 81 mg once a day, normal saline at 100 mg intravenously per hour. Overall, prognosis is grave. Anticoagulation is contraindicated at this point, and the patient requested DNR. Case was discussed with the primary physician. Hospice referral will be considered. Jose D Luis MD
--- NOTE | 2017-08-28 18:29 | CP.PCM.PN ---
Subjective - Date & Time of Evaluation Date of Evaluation: 08/28/17 Time of Evaluation: 11:18 - Subjective Subjective: - Patient seen and examined at bedside with Dr. Coburn. Patient responds with a head knod to questions. Spoke with [employer] solution architect at bedside.Life support wishes were discussed with the patient. Patient has agreed to DNR and DNI, agrees with comfort measures at end of life. Objective - Vital Signs/Intake and Output Vital Signs (last 24 hours): Temp Pulse Resp BP Pulse Ox 98.6 F 108 H 26 H 147/98 H 100 08/28/17 16:00 08/28/17 18:00 08/28/17 18:00 08/28/17 18:00 08/28/17 18:00 Intake and Output: 08/28/17 08/28/17 06:59 18:59 Intake Total 1130 1500 Output Total 200 225 Balance 930 1275 - Medications Medications: Current Medications Albuterol/Ipratropium (Duoneb 3 Mg/0.5 Mg (3 Ml) Ud) 3 ml INH RQ6 PRN PRN Reason: Shortness of Breath Aspirin (Aspirin Chewable) 81 mg PO DAILY [facility] Last Admin: 08/28/17 09:25 Dose: 81 mg Sodium Chloride (Sodium Chloride 0.9%) 1,000 mls @ 100 mls/hr IV .Q10H [facility] Stop: 08/29/17 23:59 Last Admin: 08/27/17 20:45 Dose: 100 mls/hr Insulin Human Regular (Humulin R) 1 units SC ACHS [facility] PRN Reason: Protocol Last Admin: 08/28/17 16:40 Dose: Not Given - Labs Labs: 08/28/17 04:30 08/28/17 04:30 PT 15.7 Seconds (9.8-13.1) H 08/28/17 04:30 INR 1.4 (0.9-1.2) H 08/28/17 04:30 APTT 30.0 Seconds (25.6-37.1) D 08/28/17 04:30 - Constitutional Appears: No Acute Distress - Head Exam Head Exam: NORMAL INSPECTION - Neck Exam Additional comments: tach collar - Respiratory Exam Additional comments: good air exchange - Cardiovascular Exam Cardiovascular Exam: +S1, +S2 Additional comments: right radial pulse> left radial pulse - GI/Abdominal Exam GI & Abdominal Exam: Soft, Normal Bowel Sounds. absent: Tenderness - Neurological Exam Additional comments: right hemiplegia Assessment and Plan - Assessment and Plan (Free Text) Assessment: 71 yr old M admitted for acute CVA, s/p TPA administered in emergency department. He has multiple acute infarcts in left cerbral hemisphere and small foci of acute hemorrhage in frontal and parietal lobes. 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 - -Neuro is aware of Brain MRI results. As per Neuro patient has poor prognosis and recommendations for hospice given. No other interventions from Neuro stand point at this time. 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 Patient is not a good candidate for anticoagulant therapy because acute hemorrhagic stroke noted in Brain MRI. - Neurology consult appreciated - PT/OT 2) Hypotension - Has been titrated off vasopressor. Rt arm BP: 122/70, Left arm 60/40's - EF shows 35-40% EF - Cardio consult appreciated. 3) DM 2 - controlled - no meds 4) DVT prophylaxis - SCD DNR DNI/Poor prognosis
[2017-08-28] MEDS: Sodium Chloride 0.9% 1,000 ML IV SCH (20:00)
[2017-08-29 05:03] LABS: BASO # 0.1 K/uL (0.0-0.2); BASO % 1.3 % (0.0-2.0); EOS # 0.2 K/uL (0.0-0.7); EOS % 2.9 % (0.0-4.0); HEMOGLOBIN 12.3 g/dL (12.0-18.0); LYMPH # 1.7 K/uL (1.0-4.3); LYMPH % 20.8 % (20.0-40.0); MEAN CORPUSCULAR HEMOGLOBIN 24.7 pg (27.0-31.0); MEAN CORPUSCULAR HGB CONC 32.5 g/dL (33.0-37.0); MEAN PLATELET VOLUME 8.6 fl (7.2-11.7); MONO # 0.9 K/uL (0.0-0.8); MONO % 11.4 % (0.0-10.0); NEUT # 5.1 K/uL (1.8-7.0); NEUT % 63.6 % (50.0-75.0); NRBC % 0.2 % (0.0-0.0); RBC 4.98 Mil/uL (4.40-5.90); RED CELL DISTRIBUTION WIDTH 14.8 % (11.5-14.5)
[2017-08-29 05:27] LABS: BLOOD UREA NITROGEN 17 mg/dl (9-20); CALCIUM 7.9 mg/dL (8.4-10.2); GFR AFRICAN-AMERICAN > 60; GFR NON-AFRICAN AMERICAN > 60; MAGNESIUM 1.6 MG/DL (1.6-2.3)
[2017-08-29] MEDS: Sodium Chloride 0.9% 1,000 ML IV SCH (06:30)
[2017-08-29] MEDS: Insulin Regular 100 units/ml SC SCH ×4 (06:47→22:31)
--- NOTE | 2017-08-29 18:30 | PN ---
DATE: SUBJECTIVE: The patient denies any chest pain. He tolerated food today. OBJECTIVE: VITAL SIGNS: Blood pressure 123/64, heart rate 100, temperature 99.4, and respirations 16. HEENT: Loss of right nasolabial fold. CHEST: Bilateral rhonchi. HEART: S1 and S2 regular. EXTREMITIES: No edema. LABORATORY DATA: Hemoglobin, hematocrit, white count and platelet count are within normal limits. Today's SMA-7 is within normal limits except for chloride of 110, calcium slightly below normal at 7.9, and magnesium is borderline at 1.6. ASSESSMENT: 1. 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 2. Left ventricular apical hypokinesis and decreased overall systolic function. 3. History of laryngeal cancer, status post tracheostomy. RECOMMENDATIONS: Continue aspirin 81 mg once a day and albuterol inhaler. Supportive and comforting measures are justified rather than an aggressive management based on the patient's request. Jose D Luis MD
--- NOTE | 2017-08-29 23:47 | CP.PCM.PN ---
Subjective - Date & Time of Evaluation Date of Evaluation: 08/29/17 Time of Evaluation: 17:00 - Subjective Subjective: Patient is more awake Has no chest pain sob Has good appetite and able to swallow. Objective - Vital Signs/Intake and Output Vital Signs (last 24 hours): Temp Pulse Resp BP Pulse Ox 98.4 F 95 H 18 157/97 H 100 08/29/17 22:00 08/29/17 22:38 08/29/17 22:00 08/29/17 22:00 08/29/17 22:00 Intake and Output: 08/29/17 08/30/17 18:59 06:59 Intake Total 612 60 Output Total 500 Balance 112 60 - Medications Medications: Current Medications Albuterol/Ipratropium (Duoneb 3 Mg/0.5 Mg (3 Ml) Ud) 3 ml INH RQ6 PRN PRN Reason: Shortness of Breath Aspirin (Aspirin Chewable) 81 mg PO DAILY [facility] Last Admin: 08/29/17 09:21 Dose: 81 mg Insulin Human Regular (Humulin R) 1 units SC ACHS [facility] PRN Reason: Protocol Last Admin: 08/29/17 22:31 Dose: Not Given - Labs Labs: 08/29/17 04:50 08/29/17 04:50 PT 15.7 Seconds (9.8-13.1) H 08/28/17 04:30 INR 1.4 (0.9-1.2) H 08/28/17 04:30 APTT 30.0 Seconds (25.6-37.1) D 08/28/17 04:30
[2017-08-30] MEDS: Insulin Regular 100 units/ml SC SCH ×4 (10:09→23:26)
--- NOTE | 2017-08-30 10:42 | CP.PCM.PN ---
Subjective - Date & Time of Evaluation Date of Evaluation: 08/30/17 Time of Evaluation: 10:39 - Subjective Subjective: Mr. Howard was seen and examined at the bedside. He is awake, and remains non- verbal. He is able to communicate using non-verbal cues such as shaking and nodding his head, He remains with right facial palsy with right arm flaccid. He is able to move his right lower extremity in response to tactile stimuli. He is tolerating PO intake with assistance. There was no untoward events overnight. Objective - Vital Signs/Intake and Output Vital Signs (last 24 hours): Temp Pulse Resp BP Pulse Ox 99.0 F 49 L 20 125/74 100 08/30/17 07:57 08/30/17 07:57 08/30/17 07:57 08/30/17 07:57 08/30/17 07:57 Intake and Output: 08/30/17 08/30/17 06:59 18:59 Intake Total 60 Output Total 500 Balance -440 - Medications Medications: Current Medications Albuterol/Ipratropium (Duoneb 3 Mg/0.5 Mg (3 Ml) Ud) 3 ml INH RQ6 PRN PRN Reason: Shortness of Breath Aspirin (Aspirin Chewable) 81 mg PO DAILY [facility] Last Admin: 08/30/17 10:11 Dose: 81 mg Insulin Human Regular (Humulin R) 1 units SC ACHS [facility] PRN Reason: Protocol Last Admin: 08/30/17 10:09 Dose: Not Given - Labs Labs: 08/29/17 04:50 08/29/17 04:50 PT 15.7 Seconds (9.8-13.1) H 08/28/17 04:30 INR 1.4 (0.9-1.2) H 08/28/17 04:30 APTT 30.0 Seconds (25.6-37.1) D 08/28/17 04:30 - Constitutional Appears: No Acute Distress - Head Exam Head Exam: NORMAL INSPECTION - Neurological Exam Neurological Exam: Awake Neuro motor strength exam: Left Upper Extremity: 5, Right Upper Extremity: 0, Left Lower Extremity: 5, Right Lower Extremity: 2/1 Additional comments: Neurological unchanged from previous examination. Assessment and Plan (1) Acute ischemic stroke Assessment & Plan: Case discussed with Dr. Arauz, continue all current medical, physical, and occupational therapies. There is no new recommendations from neurology. Status: Acute
--- NOTE | 2017-08-30 16:40 | PN ---
DATE: SUBJECTIVE: The patient is tolerating pureed diet. Monitor reveals frequent PVCs and frequent blocked APCs. PHYSICAL EXAMINATION: VITAL SIGNS: Blood pressure 142/88, heart rate 91, temperature 99.3, and respirations 20. HEENT: Loss of right nasolabial fold. CHEST: Bilateral rhonchi. HEART: S1 and S2 regular. EXTREMITIES: No edema. LABORATORY DATA: Today's blood sugar 96. ASSESSMENT: 1. Status post acute cerebrovascular accident involving the left hemispheric with acute hemorrhagic changes. 2. Apical hypokinesis, could be substrate for the patient's recent embolic event. 3. 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 RECOMMENDATION: Continue aspirin 81 mg twice a day and albuterol inhaler q.6 hours. Jose D Luis MD
[2017-08-31 05:00] VITALS: RESP 20; O2SAT 100
[2017-08-31] MEDS: Insulin Regular 100 units/ml SC SCH ×2 (06:35→13:00)
[2017-08-31 08:42] VITALS: PULSE 49
--- NOTE | 2017-08-31 10:14 | CP.PCM.PN ---
Subjective - Date & Time of Evaluation Date of Evaluation: 08/31/17 Time of Evaluation: 10:10 - Subjective Subjective: Mr. Howard was seen and examined at the bedside. He is alert, non-verbal, communicates using non-verbal cues such as shaking and nodding of his head. He has a trach connected to a humidified oxygen. He denies any headache, dizziness , lightheadedness, nausea, or vomiting. He remains with right side facial palsy and right side flaccidity, but able to minimally move his right lower extremity in response to tactile stimuli. He is able to follow simple commands. Objective - Vital Signs/Intake and Output Vital Signs (last 24 hours): Temp Pulse Resp BP Pulse Ox 98.7 F 49 L 20 117/70 100 08/31/17 08:00 08/31/17 08:00 08/31/17 08:00 08/31/17 08:00 08/31/17 08:00 Intake and Output: 08/31/17 08/31/17 06:59 18:59 Intake Total 0 Output Total 275 Balance -275 - Medications Medications: Current Medications Albuterol/Ipratropium (Duoneb 3 Mg/0.5 Mg (3 Ml) Ud) 3 ml INH RQ6 PRN PRN Reason: Shortness of Breath Aspirin (Aspirin Chewable) 81 mg PO DAILY [facility] Last Admin: 08/30/17 10:11 Dose: 81 mg Insulin Human Regular (Humulin R) 1 units SC ACHS [facility] PRN Reason: Protocol Last Admin: 08/31/17 06:35 Dose: Not Given - Labs Labs: 08/29/17 04:50 08/29/17 04:50 PT 15.7 Seconds (9.8-13.1) H 08/28/17 04:30 INR 1.4 (0.9-1.2) H 08/28/17 04:30 APTT 30.0 Seconds (25.6-37.1) D 08/28/17 04:30 - Constitutional Appears: No Acute Distress - Head Exam Head Exam: NORMAL INSPECTION - Neurological Exam Neurological Exam: Alert, Awake Neuro motor strength exam: Left Upper Extremity: 5, Right Upper Extremity: 0, Left Lower Extremity: 5, Right Lower Extremity: 0 Additional comments: Neurological unchanged from previous examination. Assessment and Plan (1) Acute ischemic stroke Assessment & Plan: Case discussed with Dr. Velásquez, continue all current medical, physical, occupational, and speech therapies. Recommend conservative management. Status: Acute
--- NOTE | 2017-08-31 12:36 | PN ---
DATE: SUBJECTIVE: The patient is mildly tachypneic. He denies any chest pain. PHYSICAL EXAMINATION VITAL SIGNS: Blood pressure of 116/70, heart rate of 49, temperature of 98.7, and respirations of 20. HEENT: Loss of right nasolabial fold. CHEST: Bilateral rhonchi. Basal gross crepitations. HEART: S1 and S2 regular. EXTREMITIES: The patient still has right hemiplegia. LABORATORY DATA: Today's blood sugars of 111 and 145. ASSESSMENT: 1. 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 2. Apical hypokinesis, most likely the substrate for the patient's recent embolic event. 3. Bronchospasm and bronchial secretions. PLAN: once a day, albuterol inhaler, and consider tracheal suctioning via tracheostomy tube. The patient will be transferred to hospice. Jose D Luis MD
--- NOTE | 2017-08-31 13:05 | PQF GENQUE ---
This form is a permanent part of the medical record 08/31/17 Dr. Coburn, A cause and effect relationship may not be assumed and must be documented by a provider. Please clarify the relationship, if any, between the use of the TPA and the small foci of acute hemorrhage in the L frontal and parietal lobes. Are the conditions: Due to or associated with each other Unrelated to each other Clinically unable to determine Unknown Admitted with acute ischemic CVA R sided facial and upper/lower ext involvement. Treated with TPA for about 30 minutes subsequently d/c due to adverse effects bleeding from tracheostomy site. 08/27 MRI BRAIN: There are scattered small foci of associated acute hemorrhage in the L frontal and parietal lobes. Multiple acute infarcts in the L cerebral hemisphere. Clarification of your documentation is requested to better reflect the severity of illness and intensity of treatment of your patient. Indicators present [] Specify: [] [] Specify: [] [] Specify: [] [] Specify: [] Location in the medical record that reflects the above clinical findings: [] Treatment Provided: [] PHYSICIAN'S RESPONSE Based on your medical judgment of the clinical indicators outlined above please clarify the following: [] Practitioner response [] If unable to determine, please check the box, sign and date. Present On Admission (POA) Indicator: [] Present at the time of admission [] Not present at the time of admission [] Clinically Undetermined In responding to this query, please exercise your independent professional judgment. The fact that a question is asked does not imply that any particular answer is desired or expected. Thank you for your clarification on this documentation. If you have any questions please call:[phone] * Thank you, Marissa Tejeda RN CDMP [facility]
[2017-08-31 16:40] VITALS: BP 137/88; TEMP 99.3
== END 2017-08-31 19:50 | DRG 61 ==
LOC: H.ER 13:15 → H.ERHOLD 16:31 → H.ICU/CCU 23:31 → H.TEL 08-29 22:32
PROVIDERS: ADMIT Family Medicine; ATTEND Family Medicine
PROC: 3E03317 Introduction of Other Thrombolytic into Peripheral Vein, Percutaneous Approach (ICD-10-PCS; 2017-08-25)
PROC: 05H533Z Insertion of Infusion Device into Right Subclavian Vein, Percutaneous Approach (ICD-10-PCS; principal; 2017-08-26)
PROC: 3E0F7GC Introduction of Other Therapeutic Substance into Respiratory Tract, Via Natural or Artificial Opening (ICD-10-PCS; 2017-08-26)
DX: I63.412 Cerebral infarction due to embolism of left middle cerebral artery (principal); I61.1 Nontraumatic intracerebral hemorrhage in hemisphere, cortical; I47.2 Ventricular tachycardia; I82.B12 Acute embolism and thrombosis of left subclavian vein; I95.9 Hypotension, unspecified; D68.32 Hemorrhagic disorder due to extrinsic circulating anticoagulants; E87.0 Hyperosmolality and hypernatremia; Z93.0 Tracheostomy status; E11.22 Type 2 diabetes mellitus with diabetic chronic kidney disease; E11.65 Type 2 diabetes mellitus with hyperglycemia; E87.8 Other disorders of electrolyte and fluid balance, not elsewhere classified; J95.01 Hemorrhage from tracheostomy stoma; G81.01 Flaccid hemiplegia affecting right dominant side; E86.0 Dehydration; R29.810 Facial weakness; Z85.21 Personal history of malignant neoplasm of larynx; R47.01 Aphasia; I25.10 Atherosclerotic heart disease of native coronary artery without angina pectoris; J44.9 Chronic obstructive pulmonary disease, unspecified; F32.9 Major depressive disorder, single episode, unspecified; Z87.891 Personal history of nicotine dependence; I13.10 Hypertensive heart and chronic kidney disease without heart failure, with stage 1 through stage 4 chronic kidney disease, or unspecified chronic kidney disease; N18.9 Chronic kidney disease, unspecified; T45.615A Adverse effect of thrombolytic drugs, initial encounter; Z66 Do not resuscitate; E87.6 Hypokalemia; Z51.5 Encounter for palliative care; J98.01 Acute bronchospasm; R00.1 Bradycardia, unspecified; F20.9 Schizophrenia, unspecified